=== PATIENT | female | born 1940 | race Caucasian/White ===

== ENCOUNTER 2016-06-15 18:35 | Observation (INO) | payer MEDICARE ==
[~2016-06-15] VITALS: Ht 175.3 cm; Wt 70.0 kg
[2016-06-15 18:55] VITALS: BP 115/85; PULSE 79; RESP 17; TEMP 98.8; O2SAT 97
[2016-06-15] MEDS ORDERED: SODIUM CHLOR 0.9% 1000 ML INJ 1,000 ML IV ONE ×2 (18:55→19:00)
[2016-06-15] MEDS ORDERED: SODIUM CHLORIDE 0.9% FLUSH 10 ML FLUSH IVF PRN (19:00)
[2016-06-15] MEDS ORDERED: ONDANSETRON HCL 4 MG/2 ML VIAL IVP ONE (19:00)
--- NOTE | 2016-06-15 19:06 | PD ---
HPI Chief Complaint: GI Complaint Time Seen by Provider: 18:55 Travel History International Travel<30 days: No Contact w/Intl Traveler<30days: No Traveled to known affect area: No History of Present Illness HPI Patient is a 75 year old female with history of hypertension who presents to the ER after a syncopal episode. Patient reports that she was not feeling well since last night, reports that she began having chills last night. Reports that this morning, she began to feel sick and felt nauseous. Reports that she was standing in her kitchen and felt nauseous and was vomiting, reports that she must of "passed out." Patient's found her on the ground, called 911. EMS reports that when he arrived on scene, patient was sitting on the ground, reports that she had vomited multiple times and had complained of a headache. Patient reports that she has a mild headache at this time, denies fever/chills. Denies chest pain or sob. Denies abdominal pain at this time. Patient with no other c/o. She does admit to taking a baby ASA daily. PFSH Past Medical History ?: Not Social History Tobacco Use: No Allergies-Medications (Allergen,Severity, Reaction): Coded Allergies: No Known Allergies (Unverified , 06/15/16) Reported Meds & Prescriptions Reported Meds & Active Scripts Active Reported Aspirin 81 Mg Tabdr 81 Mg PO DAILY Potassium 75 Mg Tab Amlodipine (Amlodipine Besylate) 5 Mg Tab 5 Mg PO DAILY Review of Systems General / Constitutional: Positive: Chills, No: Fever Eyes: No: Visual changes HENT: No: Headaches Cardiovascular: Positive: Syncope, No: Chest Pain or Discomfort Respiratory: Positive: Cough, No: Shortness of Breath Gastrointestinal: Positive: Nausea, Vomiting, No: Diarrhea, Abdominal Pain Genitourinary: No: Urgency, Frequency, Dysuria Musculoskeletal: No: Pain Skin: No Rash Neurologic: Positive: Weakness, Headache Psychiatric: No: Depression Endocrine: No: Polydipsia Hematologic/Lymphatic: No: Easy Bruising Physical Exam Narrative GENERAL: NAD, Nontoxic SKIN: Focused skin assessment warm/dry. HEAD: Atraumatic. Normocephalic. EYES: Pupils equal and round. No injection or drainage. ENT: No nasal bleeding or discharge. Mucous membranes pink and moist. NECK: Trachea midline. No JVD. no meningeal signs, negative Kernig's and Babinski's sign CARDIOVASCULAR: Irregular rate and rhythm. No murmur appreciated. RESPIRATORY: No accessory muscle use. Clear to auscultation. Breath sounds equal bilaterally. GASTROINTESTINAL: Abdomen soft, non-tender, nondistended. Hepatic and splenic margins not palpable. MUSCULOSKELETAL: No obvious deformities. No clubbing. No cyanosis. No edema. NEUROLOGICAL: Awake and alert. No obvious cranial nerve deficits. Motor grossly within normal limits. Normal speech. PSYCHIATRIC: Appropriate mood and affect; insight and judgment normal. Data Data Last Documented VS Vital Signs Date Time Temp Pulse Resp B/P Pulse Ox O2 Delivery O2 Flow Rate FiO2 06/15/16 19:40 17 06/15/16 19:39 97 Room Air 06/15/16 18:55 98.8 79 115/85 Orders Electrocardiogram (06/15/16 18:55) Complete Blood Count With Diff (06/15/16 18:55) Comprehensive Metabolic Panel (06/15/16 18:55) Magnesium (Mg) (06/15/16 18:55) B-Type Natriuretic Peptide (06/15/16 18:55) Ckmb (Isoenzyme) Profile (06/15/16 18:55) Troponin I (06/15/16 18:55) Act Partial Throm Time (Ptt) (06/15/16 18:55) Prothrombin Time / Inr (Pt) (06/15/16 18:55) Urinalysis - C+S If Indicated (06/15/16 18:55) Chest, Single Ap (06/15/16 18:55) Ct Brain W/O Iv Contrast(Rout) (06/15/16 18:55) Blood Glucose (06/15/16 18:55) Ecg Monitoring (06/15/16 18:55) Iv Access Insert/Monitor (06/15/16 18:55) Oximetry (06/15/16 18:55) Ondansetron Inj (Zofran Inj) (06/15/16 19:00) Sodium Chloride 0.9% Flush (Ns Flush) (06/15/16 19:00) Sodium Chlor 0.9% 1000 Ml Inj (Ns 1000 M (06/15/16 18:55) Influenzae A/B Antigen (06/15/16 18:55) Blood Culture (06/15/16 18:55) Sodium Chlor 0.9% 1000 Ml Inj (Ns 1000 M (06/15/16 19:00) Aspirin (Aspirin) (06/15/16 20:45) Admit Order (Ed Use Only) (06/15/16 20:39) Labs Laboratory Tests Test 06/15/16 19:31 White Blood Count 5.5 TH/MM3 Red Blood Count 4.06 MIL/MM3 Hemoglobin 12.5 GM/DL Hematocrit 34.6 % Mean Corpuscular Volume 85.1 FL Mean Corpuscular Hemoglobin 30.7 PG Mean Corpuscular Hemoglobin 36.0 % Concent Red Cell Distribution Width 12.9 % Platelet Count 175 TH/MM3 Mean Platelet Volume 7.8 FL Neutrophils (%) (Auto) 79.6 % Lymphocytes (%) (Auto) 9.7 % Monocytes (%) (Auto) 10.3 % Eosinophils (%) (Auto) 0.2 % Basophils (%) (Auto) 0.2 % Neutrophils # (Auto) 4.4 TH/MM3 Lymphocytes # (Auto) 0.5 TH/MM3 Monocytes # (Auto) 0.6 TH/MM3 Eosinophils # (Auto) 0.0 TH/MM3 Basophils # (Auto) 0.0 TH/MM3 CBC Comment AUTO DIFF Differential Total Cells 100 Counted Neutrophils % (Manual) 75 % Band Neutrophils % 13 % Lymphocytes % 10 % Monocytes % 2 % Neutrophils # (Manual) 4.8 TH/MM3 Differential Comment FINAL DIFF MANUAL Platelet Estimate NORMAL Platelet Morphology Comment NORMAL Ovalocytes 1+ Prothrombin Time 10.7 SEC Prothromb Time International 1.0 RATIO Ratio Activated Partial 24.5 SEC Thromboplast Time Sodium Level 135 MEQ/L Potassium Level 3.4 MEQ/L Chloride Level 100 MEQ/L Carbon Dioxide Level 25.8 MEQ/L Anion Gap 9 MEQ/L Blood Urea Nitrogen 11 MG/DL Creatinine 0.74 MG/DL Estimat Glomerular Filtration 77 ML/MIN Rate Random Glucose 134 MG/DL Calcium Level 8.6 MG/DL Magnesium Level 1.9 MG/DL Total Bilirubin 0.5 MG/DL Aspartate Amino Transf 15 U/L (AST/SGOT) Alanine Aminotransferase 18 U/L (ALT/SGPT) Alkaline Phosphatase 45 U/L Total Creatine Kinase 59 U/L Troponin I LESS THAN 0.02 NG/ML B-Type Natriuretic Peptide 434 PG/ML Total Protein 6.5 GM/DL Albumin 3.4 GM/DL MDM Medical Decision Making Medical Screen Exam Complete: Yes Emergency Medical Condition: Yes Interpretation(s) EKG at 1950: Sinus tach at 109bpm, qt/qtc: 354/418, no acute st or t wave changes Vital Signs Date Time Temp Pulse Resp B/P Pulse Ox O2 Delivery O2 Flow Rate FiO2 06/15/16 18:55 98.8 79 17 115/85 97 Differential Diagnosis dehydration, pneumonia, influenza, electrolyte abnormality, ACS, new onset afib , meningitis though unlikely Narrative Course Patient is a 75 year old female who presents to ER after syncopal episode at home today. Patient reports that she began to have chills last night, reports that she felt nauseous today and has been vomiting. Patient reports that she was in her kitchen today well vomiting, reports that she had a syncopal episode. Patient's found her on the floor of her kitchen. EMS arrived on scene, patient was sitting up and she was hypotensive with sbp in the 70's. BS 117, patient was given IVF and she did respond to them. Patient at this time complains of a minor headache, she does take a baby aspirin every day. CT of head ordered. Patient with no chest pain or shortness of breath. No abdominal pain. Labs as well as EKG, cardiac enzymes and xray of chest ordered to evaluate for syncopal episode. Patient has been pancultured, influenza ordered as patient is complaining chills as well as cough. Diagnosis Primary Impression: Syncope and collapse Admitting Information Admitting Physician Requests: Observation Scripts Metoprolol Tartrate 50 Mg Tab50 Mg PO BID #60 TAB Ref 0 Prov:Juan Ramon Perez 06/16/16 Azithromycin 250 Mg [id number] Mg PO DIRECTED #6 TAB Ref 0 Take 2 tabs (500 mg) on day 1 then 1 tab daily x 4 days. Prov:Juan Ramon Perez 06/16/16 Beth Whitten DO Jun 15, 2016 19:06
--- NOTE | 2016-06-15 19:24 | RADRPT ---
EXAM DATE/TIME: 06/15/2016 19:04 [facility] COMPARISON: No previous studies available for comparison. INDICATIONS : Fainted today and found on floor; cephalgia since yesterday. RADIATION DOSE: 56.35 CTDIvol (mGy) MEDICAL HISTORY : None SURGICAL HISTORY : None. ENCOUNTER: Initial ACUITY: 2 days PAIN SCALE: 4/10 LOCATION: cranial TECHNIQUE: Multiple contiguous axial images were obtained of the head. Using automated exposure control and adj ustment of the mA and/or kV according to patient size, radiation dose was kept as low as reasonably a chievable to obtain optimal diagnostic quality images. FINDINGS: CEREBRUM: The ventricles are normal for age. No evidence of midline shift, mass lesion, hemorrhage or acute in farction. No extra-axial fluid collections are seen. Mild periventricular and subcortical white yoana er small vessel ischemic changes are noted bilaterally. POSTERIOR FOSSA: The cerebellum and brainstem are intact. The 4th ventricle is midline. The cerebellopontine angle i s unremarkable. EXTRACRANIAL: The visualized portion of the orbits is intact. SKULL: The calvaria is intact. No evidence of skull fracture. CONCLUSION: 1. Mild periventricular and subcortical white matter small vessel ischemic changes bilaterally. 2. No acute infarct, acute hemorrhage, mass effect or extra axial fluid collections. Lencho Judge MD on June 15, 2016 at 19:20 Board Certified Radiologist. This report was verified electronically.
--- NOTE | 2016-06-15 19:25 | RADRPT ---
EXAM DATE/TIME: 06/15/2016 19:00 [facility] COMPARISON: No previous studies available for comparison. INDICATIONS : Fever, syncopal episode today MEDICAL HISTORY : None. SURGICAL HISTORY : None. ENCOUNTER: Initial ACUITY: 1 day PAIN SCORE: Non-responsive. LOCATION: Bilateral chest FINDINGS: The heart and mediastinal structures are normal. The pulmonary vascular pattern is normal. There is minimal streakiness within the left lung base consistent with possible atelectasis. The right lung is clear. Degenerative changes and scoliosis of the thoracic spine are noted. CONCLUSION: 1. Minimal streakiness within the left lung base consistent with possible atelectasis and/or scarring . 2. Degenerative changes and scoliosis of the thoracic spine. Lencho Judge MD on June 15, 2016 at 19:19 Board Certified Radiologist. This report was verified electronically.
[2016-06-15 19:39] VITALS: O2SAT 97
[2016-06-15] MEDS ORDERED: POTA75TA (19:44)
[2016-06-15] MEDS ORDERED: VALS1TAB70 PO (19:44)
[2016-06-15] MEDS ORDERED: AMLO5TAB2 PO (19:44)
[2016-06-15] MEDS ORDERED: METO100T7 PO (19:44)
[2016-06-15] MEDS ORDERED: ASPI1TAB69 PO (19:44)
[2016-06-15 19:57] LABS: AUTOMATED NEUTROPHIL # 4.4 TH/MM3 (1.8-7.7); BASOPHIL % 0.2 % (0.0-2.0); EOSINOPHIL % 0.2 % (0.0-4.0); HEMATOCRIT 34.6 % (35.0-46.0); LYMPH % 9.7 % (9.0-44.0); LYMPHOCYTE # 0.5 TH/MM3 (1.0-4.8); MEAN CELL VOLUME 85.1 FL (80.0-100.0); MEAN CORPUSCULAR HEMOGLOBIN 30.7 PG (27.0-34.0); MONO % 10.3 % (0.0-8.0); NEUT % 79.6 % (16.0-70.0); PLATELET COUNT 175 TH/MM3 (150-450); RED BLOOD COUNT 4.06 MIL/MM3 (4.00-5.30); RED CELL DISTRIBUTION WIDTH 12.9 % (11.6-17.2); WHITE BLOOD COUNT 5.5 TH/MM3 (4.0-11.0)
[2016-06-15 20:04] LABS: HEMO FLAGS AUTO DIFF
[2016-06-15 20:06] LABS: APTT (PATIENT) 24.5 SEC (24.3-30.1); PROTHROMBIN TIME - PATIENT 10.7 SEC (9.8-11.6)
[2016-06-15 20:09] LABS: ANION GAP 9 MEQ/L (5-15); AST (GOT) 15 U/L (15-37); BICARBONATE 25.8 MEQ/L (21.0-32.0); BLOOD UREA NITROGEN 11 MG/DL (7-18); CHLORIDE 100 MEQ/L (98-107); GLOMERULAR FILTRATION RATE 77 ML/MIN (>89); MAGNESIUM 1.9 MG/DL (1.5-2.5); POTASSIUM 3.4 MEQ/L (3.5-5.1); SODIUM (NA) 135 MEQ/L (136-145)
[2016-06-15 20:14] LABS: ALKALINE PHOSPHATASE 45 U/L (45-117); ALT (GPT) 18 U/L (10-53); TOTAL BILIRUBIN ADULT 0.5 MG/DL (0.2-1.0)
[2016-06-15 20:16] LABS: CREATINE KINASE 59 U/L (26-192)
[2016-06-15] MEDS ORDERED: PIPERACIL-TAZO 4.5 GM PREMIX 100 ML IV ONE (20:30)
[2016-06-15] MEDS ORDERED: AZITHROMYCIN INJ 500 MG in SODIUM CHLOR 0.9% 250 ML INJ 250 ML IV ONE (20:30)
[2016-06-15] MEDS ORDERED: ACETAMINOPHEN/HYDROcodone 325 MG/5 MG TAB PO PRN (20:45)
[2016-06-15] MEDS ORDERED: ACETAMINOPHEN 325 MG TAB PO PRN (20:45)
[2016-06-15] MEDS ORDERED: MORPHINE SULFATE 4 MG/ML INJ IV PRN (20:45)
[2016-06-15] MEDS ORDERED: SODIUM CHLORIDE 0.9% FLUSH 10 ML FLUSH IV FLUSH PRN (20:45)
[2016-06-15] MEDS ORDERED: BISACODYL 10 MG SUPP RECTAL PRN (20:45)
[2016-06-15] MEDS ORDERED: ASPIRIN 325 MG TAB PO ONE (20:45)
[2016-06-15] MEDS ORDERED: POTASSIUM CHLORIDE 20 MEQ CONTROLLED RELEASE TAB PO ONE (20:45)
[2016-06-15] MEDS ORDERED: ONDANSETRON HCL 4 MG/2 ML VIAL IVP PRN (20:45)
--- NOTE | 2016-06-15 20:47 | HHI.HP ---
[facility] No Primary Care Physician Admission Diagnosis Syncope Diagnoses: (1) Syncope Diagnosis: Principal (2) Hypotension Diagnosis: Principal (3) Nausea & vomiting Diagnosis: Principal (4) Hypokalemia Diagnosis: Principal Travel History International Travel<30 Days: No Contact w/Intl Traveler <30 Da: No Traveled to Known Affected Are: No History of Present Illness This is a 75-year-old female with a PMH of HTN was brought to the ER by EMS after syncopal episode. Per patient, she has been having ongoing nausea and vomiting since yesterday. Today, had persistent nausea and vomiting and " passed out", found unresponsive on kitchen floor by . Upon EMS arrival, patient noted to be hypotensive with BP 70s systolic, s/p IVF. Denies fever, chills or diarrhea. On arrival, BP 115/85, HR 79, O2 sat 97% on RA, Afebrile. WBC normal, however elevated neutrophil count and bandemia. K+ 3.4. GFR 77, no previous labs for comparison. CT Head no acute findings. CXR with minimal streakiness left lung base consistent with atelectasis. Review of Systems Except as stated in HPI: all other systems reviewed are Neg ROS: 14 point review of systems otherwise negative. Past Family Social History Past Medical History PMH: HTN Past Surgical History PAST SURGICAL HISTORY: Hysterectomy, Right Foot Surgery Allergies: Coded Allergies: No Known Allergies (Unverified , 06/15/16) Family History PAST FAMILY HISTORY: Reviewed. No h/o DM or CAD Social History PAST SOCIAL HISTORY: Negative for alcohol, tobacco or drugs. Physical Exam Vital Signs Vital Signs Date Time Temp Pulse Resp B/P Pulse Ox O2 Delivery O2 Flow Rate FiO2 06/15/16 19:40 17 06/15/16 19:39 97 Room Air 06/15/16 18:55 98.8 79 17 115/85 97 Physical Exam PE: GENERAL: Pleasant elderly female in no acute distress. HEENT: PERRLA, EOMI. No scleral icterus or conjunctival pallor. No lid lag or facial droop. Dry mucous membranes CARDIOVASCULAR: Regular rate and rhythm. No obvious murmurs to auscultation. No chest tenderness to palpation. RESPIRATORY: No obvious rhonchi or wheezing. Clear to auscultation. Breath sounds equal bilaterally. GASTROINTESTINAL: Abdomen soft, non-tender, nondistended. BS normal. MUSCULOSKELETAL: Extremities without clubbing, cyanosis, or edema. No obvious deformities. NEUROLOGICAL: Awake, alert and oriented x4. No focal neurologic deficits. Moving both upper and lower extremities spontaneously. Laboratory Laboratory Tests Test 06/15/16 19:31 White Blood Count 5.5 Red Blood Count 4.06 Hemoglobin 12.5 Hematocrit 34.6 Mean Corpuscular Volume 85.1 Mean Corpuscular Hemoglobin 30.7 Mean Corpuscular Hemoglobin 36.0 Concent Red Cell Distribution Width 12.9 Platelet Count 175 Mean Platelet Volume 7.8 Neutrophils (%) (Auto) 79.6 Lymphocytes (%) (Auto) 9.7 Monocytes (%) (Auto) 10.3 Eosinophils (%) (Auto) 0.2 Basophils (%) (Auto) 0.2 Neutrophils # (Auto) 4.4 Lymphocytes # (Auto) 0.5 Monocytes # (Auto) 0.6 Eosinophils # (Auto) 0.0 Basophils # (Auto) 0.0 CBC Comment AUTO DIFF Prothrombin Time 10.7 Prothromb Time International 1.0 Ratio Activated Partial 24.5 Thromboplast Time Sodium Level 135 Potassium Level 3.4 Chloride Level 100 Carbon Dioxide Level 25.8 Anion Gap 9 Blood Urea Nitrogen 11 Creatinine 0.74 Estimat Glomerular Filtration 77 Rate Random Glucose 134 Calcium Level 8.6 Magnesium Level 1.9 Total Bilirubin 0.5 Aspartate Amino Transf 15 (AST/SGOT) Alanine Aminotransferase 18 (ALT/SGPT) Alkaline Phosphatase 45 Total Creatine Kinase 59 Troponin I LESS THAN 0.02 Total Protein 6.5 Albumin 3.4 Date/Time Procedure Status Source Growth 06/15/16 19:34 Influenza Types A,B Antigen ([facility]) - Final Complete Nasal Washing NEGATIVE FOR FLU A AND B ANTIGEN.... 06/15/16 19:32 Aerobic Blood Culture Received Blood Peripheral Pending 06/15/16 19:32 Anaerobic Blood Culture Received Blood Peripheral Pending Result Diagram: 06/15/16193006/15/161930 Assessment and Plan Problem List: (1) Syncope ICD Code: R55 Status: Acute (2) Hypotension ICD Code: I95.9 Status: Acute (3) Nausea & vomiting ICD Code: R11.2 Status: Acute (4) Hypokalemia ICD Code: E87.6 Status: Acute Assessment and Plan A/P: 1. Syncope: Likely vasovagal in light of nausea/vomiting and dehydration. Initial trop negative, EKG w/ no acute findings. Admit for Observation, telemetry, check serial enzymes. Check Echo. IVF for hydration. 2. Hypotension: Secondary to dehydration from nausea/vomiting and decreased PO intake. Continue w/ IVF, monitor BP, hold BP meds until pressure stable. 3. Nausea/Vomiting: acute onset of nausea/vomiting, no diarrhea. WBC normal, afebrile, however elevated neutrophil count and bandemia. Will start on empiric treatment for Gastroenteritis w/ Cipro/Flagyl. Check CT Abd/Pelvis if symptoms persistent. Analgesics/antiemetics as needed. 4. Hypokalemia: K+ 3.4, will replace and recheck in am. 5. DVT Prophylaxis: SCD/Teds. 6. Social work for d/c planning as needed. 7. Case discussed w/ ER physician at length. Merly Alvarado MD Jun 15, 2016 20:47
[2016-06-15 20:54] LABS: BANDS 13 % (0-6); NEUTROPHIL # MANUAL DIFF 4.8 TH/MM3 (1.8-7.7); POLYS (SEG NEUTROPHILS) 75 % (16-70); WBC DIFF SAMPLE 100
[2016-06-15 20:55] LABS: OVALOCYTES 1+ (NORMAL); PLATELET ESTIMATE SMEAR NORMAL (NORMAL); PLATELET MORPHOLOGY NORMAL (NORMAL)
[2016-06-15 20:56] LABS: SCAN/DIFF FINAL DIFF MANUAL
[2016-06-15] MEDS: SODIUM CHLORIDE 0.9% FLUSH 10 ML FLUSH IV FLUSH SCH (21:00)
[2016-06-15 21:04] VITALS: BP 131/64; PULSE 66; RESP 16; O2SAT 97
[2016-06-15] MEDS: SODIUM CHLOR 0.9% 1000 ML INJ 1,000 ML IV SCH (21:05)
[2016-06-15] MEDS ORDERED: CIPROFLOXACIN 400 MG PREMIX 200 ML IV SCH (22:15)
[2016-06-15 22:54] VITALS: BP 125/68; PULSE 73; RESP 18; TEMP 98.1; O2SAT 95
[2016-06-16 00:53] VITALS: BP 124/60; PULSE 63; RESP 18; TEMP 98.1; O2SAT 96
[2016-06-16 01:10] VITALS: PULSE 60
[2016-06-16] MEDS: metroNIDAZOLE 500 MG INJ 100 ML IV SCH ×2 (01:10→08:40)
[2016-06-16 04:16] VITALS: BP 122/69; PULSE 85; RESP 18; TEMP 98.1; O2SAT 97
[2016-06-16 07:30] LABS: AUTOMATED NEUTROPHIL # 2.6 TH/MM3 (1.8-7.7); BASOPHIL % 0.1 % (0.0-2.0); EOSINOPHIL % 0.1 % (0.0-4.0); HEMO FLAGS DIFF FINAL; LYMPH % 17.7 % (9.0-44.0); LYMPHOCYTE # 0.7 TH/MM3 (1.0-4.8); MEAN CELL VOLUME 87.2 FL (80.0-100.0); MEAN CORPUSCULAR HEMOGLOBIN 29.3 PG (27.0-34.0); MEAN CORPUSCULAR HGB CONC 33.7 % (32.0-36.0); NEUT % 67.1 % (16.0-70.0); PLATELET COUNT 149 TH/MM3 (150-450); RED BLOOD COUNT 3.79 MIL/MM3 (4.00-5.30); WHITE BLOOD COUNT 3.9 TH/MM3 (4.0-11.0)
[2016-06-16 07:54] LABS: ALT (GPT) 16 U/L (10-53); ANION GAP 9 MEQ/L (5-15); AST (GOT) 14 U/L (15-37); BICARBONATE 23.4 MEQ/L (21.0-32.0); BLOOD UREA NITROGEN 7 MG/DL (7-18); CHLORIDE 108 MEQ/L (98-107); GLOMERULAR FILTRATION RATE 88 ML/MIN (>89); POTASSIUM 3.7 MEQ/L (3.5-5.1); SODIUM (NA) 140 MEQ/L (136-145)
[2016-06-16 07:57] LABS: ALKALINE PHOSPHATASE 39 U/L (45-117); TOTAL BILIRUBIN ADULT 0.3 MG/DL (0.2-1.0)
[2016-06-16 08:21] VITALS: BP_SYST 133; BP_SYST 134; BP_SYST 144; BP_DIAS 56; BP_DIAS 70; BP_DIAS 75; PULSE 99; RESP 18; TEMP 97.9; O2SAT 95
[2016-06-16] MEDS: SODIUM CHLOR 0.9% 1000 ML INJ 1,000 ML IV SCH (08:39)
[2016-06-16] MEDS: SODIUM CHLORIDE 0.9% FLUSH 10 ML FLUSH IV FLUSH SCH (08:40)
[2016-06-16] MEDS ORDERED: ASPIRIN EC 81 MG TABEC PO SCH (09:00)
[2016-06-16] MEDS ORDERED: LEVOFLOXACIN 750 MG TAB PO SCH (09:15)
[2016-06-16] MEDS ORDERED: amLODIPine BESYLATE 5 MG TAB PO SCH (09:30)
--- NOTE | 2016-06-16 09:38 | HHI.PR ---
Subjective Remarks Follow-up for syncope and URI. The patient states that 2 days ago she went to urgent care with cough and upper respiratory symptoms. She states they diagnosed her with an upper respiratory infection, which they thought was likely viral, so they gave her an antibiotic to take on Saturday if she did not improve. Overnight she feels like her cough is getting better and less productive. She states that all day yesterday she was having persistent nausea. She didn't eat much yesterday due to the nausea. Yesterday evening she began having episodes of vomiting, and subsequently passed out. She was reportedly hypotensive and tachycardic when the ambulance arrived. She reports that at the urgent care her systolic blood pressure was 110 which is a little low for her. She denies any recent medication changes. She isn't able to use the bedside commode and get out of bed today, denies any lightheadedness or dizziness. She reports that the medicine here helps with the nausea, she isn't able to tolerate diet here, no vomiting. No fever or chills. The patient says that her symptoms have resolved. She had questions about her x -ray. She said she was going go back to [place] shortly where she will follow up with her primary care doctor. Objective Vitals Vital Signs Date Time Temp Pulse Resp B/P Pulse Ox O2 Delivery O2 Flow Rate FiO2 06/16/16 08:21 97.9 99 18 133/70 95 144/75 134/56 06/16/16 04:16 98.1 85 18 122/69 97 06/16/16 01:10 60 06/16/16 00:53 98.1 63 18 124/60 96 06/15/16 22:54 98.1 73 18 125/68 95 Room Air 06/15/16 21:04 66 16 131/64 97 Room Air 06/15/16 19:40 17 06/15/16 19:39 97 Room Air 06/15/16 18:55 98.8 79 17 115/85 97 Result Diagram: 06/16/16 0555 06/16/16 0555 Imaging Last Impressions Head CT 06/15/16 8509 Signed Impressions: Service Date/Time: Wednesday, June 15, 2016 19:04 - CONCLUSION: 1. Mild periventricular and subcortical white matter small vessel ischemic changes bilaterally. 2. No acute infarct, acute hemorrhage, mass effect or extra axial fluid collections. Lencho Judge MD Chest X-Ray 06/15/16 8457 Signed Impressions: Service Date/Time: Wednesday, June 15, 2016 19:00 - CONCLUSION: 1. Minimal streakiness within the left lung base consistent with possible atelectasis and/or scarring. 2. Degenerative changes and scoliosis of the thoracic spine. Lencho Judge MD Objective Remarks GENERAL: Well-developed well-nourished. In no acute distress. SKIN: Warm and dry. No lesions noted. HEENT: Normocephalic. Pupils equal and round. Mucous membranes pink and moist. CARDIOVASCULAR: Regular rate and rhythm. No murmur appreciated. RESPIRATORY: No accessory muscle use. Clear to auscultation. Breath sounds equal bilaterally. GASTROINTESTINAL: Abdomen soft, non-tender, nondistended. Bowel sounds x4. MUSCULOSKELETAL: No obvious deformities. No clubbing or cyanosis. No edema. NEUROLOGICAL: Awake and alert. No focal neurological deficits. Moves upper and lower extremities spontaneously. Normal speech. PSYCHIATRIC: Appropriate mood and affect; insight and judgment normal. A/P Problem List: (1) Syncope ICD Code: R55 Status: Acute (2) Hypotension ICD Code: I95.9 Status: Acute (3) Nausea & vomiting ICD Code: R11.2 Status: Acute (4) Hypokalemia ICD Code: E87.6 Status: Resolved Assessment and Plan 75-year-old female with a PMH of HTN who presented after syncopal episode Syncope: Suspect vasovagal in light of infection, nausea/vomiting, and decreased intake. Troponin negative 2. EKG w/ sinus tachycardia rate 109, no ischemic changes. Monitor on telemetry. Check Echo. IVF for hydration. Likely secondary to viral infection and dehydration along with too many blood pressure medications. Medications adjusted. Hypotension: Secondary to dehydration from nausea/vomiting and decreased PO intake. Orthostatics negative. Continue w/ IVF. Resume BP meds as tolerated. Resume amlodipine. The patient will resume amlodipine and metoprolol upon discharge and will follow up with her PCP. Pneumonia: Complained of cough and upper respiratory symptoms for the past few days. Chest x-ray shows minimal streakiness within the left lung base afebrile. Continues to have cough. Start oral antibiotics. Incentive spirometry. Complete Z-Timmy. Nausea/Vomiting: Suspect secondary to pneumonia as above. No abdominal pain or diarrhea. Supportive care. Hypokalemia: K+ 3.4, replaced, now 3.7. Resolved. Magnesium within normal limits. DVT Prophylaxis: SCD/Teds. Discharge Planning Encouraged ambulation with assistance. Follow up echo results. Monitor BP. If patient remains stable and workup remains negative, possible discharge later today vs tomorrow a.m. Attending Statement The exam, history, and the medical decision-making described in the above note were completed with the assistance of the mid-level provider. I reviewed and agree with the findings presented. I attest that I had a [id number] encounter with the patient on the same day, and personally performed and documented my assessment and findings in the medical record. Problem Qualifiers (1) Syncope: Qualified Code: R55 - Vasovagal syncope (2) Nausea & vomiting: Juan Ramon Perez Jun 16, 2016 09:38 Papito Whiting DO Jun 16, 2016 16:56
[2016-06-16 11:45] VITALS: BP 134/62; PULSE 64; RESP 18; TEMP 97.9; O2SAT 95
--- NOTE | 2016-06-16 13:37 | RADRPT ---
EXAM DATE/TIME: 06/16/2016 13:19 [facility] COMPARISON: No previous studies available for comparison. INDICATIONS : Evaluate for pneumonia. MEDICAL HISTORY : None. SURGICAL HISTORY : None. ENCOUNTER: Subsequent ACUITY: 2 days PAIN SCORE: 0/10 LOCATION: chest FINDINGS: PA and lateral views of the chest demonstrate the lungs to be symmetrically aerated without evidence of mass, infiltrate or effusion. The cardiomediastinal contours are unremarkable. Minimal scoliosis is noted. CONCLUSION: No acute disease. Jaycob Monteiro MD FACR on June 16, 2016 at 13:32 Board Certified Radiologist. This report was verified electronically.
--- NOTE | 2016-06-16 14:06 | EC ---
Study Study Date:06/16/2016 STUDY CONCLUSIONS SUMMARY - Left ventricle: The cavity size was normal. Wall thickness was normal. Systolic function was normal. The estimated ejection fraction was in the range of 60% to 65%. Wall motion was normal; there were no regional wall motion abnormalities. Left ventricular diastolic function parameters were normal. - Pulmonary arteries: PA peak pressure: 43mm Hg (S). If LV function is below 40, please consider prescribing an ACEI or ARB or document rationale for non-use. PROCEDURE DATA STUDY STATUS: Elective. Procedure: Transthoracic echocardiography. Image quality was good. Scanning was performed from the parasternal, apical, and subcostal acoustic windows. Study completion: The patient tolerated the procedure well. Transthoracic echocardiography. M-mode, complete 2D, complete spectral Doppler, and color Doppler. Patient status: Inpatient. CARDIAC ANATOMY LEFT VENTRICLE: The cavity size was normal. Wall thickness was normal. Systolic function was normal. The estimated ejection fraction was in the range of 60% to 65%. Wall motion was normal; there were no regional wall motion abnormalities. The transmitral flow pattern was normal. The deceleration time of the early transmitral flow velocity was normal. The pulmonary vein flow pattern was normal. The tissue Doppler parameters were normal. Left ventricular diastolic function parameters were normal. AORTIC VALVE: Trileaflet; normal thickness leaflets. Doppler: Transvalvular velocity was within the normal range. There was no stenosis. No regurgitation. AORTA: Aortic root: The aortic root was normal in size. MITRAL VALVE: Structurally normal valve. Doppler: Transvalvular velocity was within the normal range. There was no evidence for stenosis. Trace to mild regurgitation. Peak gradient: 5mm Hg (D). LEFT ATRIUM: The atrium was normal in size. RIGHT VENTRICLE: The cavity size was normal. Wall thickness was normal. Systolic function was normal. PULMONIC VALVE: Doppler: Transvalvular velocity was within the normal range. There was no evidence for stenosis. No regurgitation. TRICUSPID VALVE: Structurally normal valve. Doppler: Transvalvular velocity was within the normal range. Trace to mild regurgitation. PULMONARY ARTERY: The main pulmonary artery was normal-sized. Systolic pressure was within the normal range. RIGHT ATRIUM: The atrium was normal in size. PERICARDIUM: There was no pericardial effusion. SYSTEMIC VEINS: Inferior vena cava: The vessel was normal in size. BASIC MEASUREMENTS ADULT Normal Left ventricle LV internal dimension, ED, chordal level, 46.7 mm 43-52 PLAX LV internal dimension, ES, chordal level, 29.2 mm 23-38 PLAX Fractional shortening, chordal level, PLAX 37 % >29 LV posterior wall thickness, ED 8.3 mm IVS/LVPW ratio, ED *1.67 <1.3 Ventricular septum Septal thickness, ED 13.9 mm Aortic valve Leaflet separation 20 mm 15-26 Right ventricle RV internal dimension, ED, PLAX 31.5 mm 19-38 BASIC MEASUREMENTS ADULT Normal Aortic valve Leaflet separation 20 mm 15-26 Aorta Root diameter, ED *38 mm 20-37 Left atrium Anterior-posterior dimension, ES 40 mm 19-40 LA/aortic root ratio 1.05 DOPPLER MEASUREMENTS ADULT Normal Main pulmonary artery Pressure, S *43 mm Hg =30 Mitral valve Peak E-wave velocity 116 cm/s Peak A-wave velocity 56.8 cm/s Peak gradient, D 5 mm Hg Peak E/A ratio 2 Tricuspid valve Regurgitant peak velocity 286 cm/s Peak RV-RA gradient, S 33 mm Hg Maximal regurgitant velocity 286 cm/s Systemic veins Estimated CVP 10 mm Hg Right ventricle RV pressure, S *43 mm Hg <30 LEGEND: Mean values are shown as u=mean value. Asterisk (*) min values outside specified normal range. Prepared and signed by Kevin Callaway [id number]
[2016-06-16 15:19] VITALS: BP 129/64; PULSE 80; RESP 18; TEMP 97.9; O2SAT 95
[2016-06-16] MEDS ORDERED: AZIT250T3 PO (15:19)
[2016-06-16] MEDS ORDERED: METO50TA PO (15:39)
[2016-06-17] MEDS ORDERED: AZITHROMYCIN 250 MG TAB PO SCH (09:00)
--- NOTE | 2016-06-17 21:25 | EKG ---
Date Performed: 06/15/2016 Time Performed: 19:50:07 PTAGE: 75 years EKG: SINUS TACHYCARDIA WITH FIRST DEGREE AV BLOCK BORDERLINE LEFT AXIS DEVIATION NONSPECIFIC ST & T-WAVE ABNORMALITY ABNORMAL ECG NO PREVIOUS TRACING DOCTOR: Kevin Callaway Interpretating Date/Time 06/17/2016 21:22:37
== END 2016-06-16 17:02 | disposition home or self-care (01) ==
LOC: NEPA 18:35 → NEDA 20:41 → NEPGCP 23:43
PROVIDERS: ADMIT Hospitalist; ATTEND Hospitalist
DX: R55 Syncope and collapse (principal); R11.2 Nausea with vomiting, unspecified; I95.9 Hypotension, unspecified; E87.6 Hypokalemia
CPT/HCPCS: 70450; 71010; 71020; 80053; 82550; 83735; 83880; 84484; 85007; 85025; 85027; 85610; 85730; 87040; 87804; 93005; 93306; 96361; 96374; 99285; G0378; J0744; J2405; J7030

== ENCOUNTER 2017-05-25 16:44 | Observation (INO) | payer MEDICARE ==
[~2017-05-25] VITALS: Ht 165.1 cm; Wt 65.0 kg
[~2017-05-25 16:44] MED LIST: AMLO5TAB2 PO; ASPI1TAB69 PO; AZIT250T3 PO; METO50TA PO; POTA75TA
[2017-05-25 16:55] VITALS: BP 135/90; PULSE 105; RESP 16; TEMP 98.9; O2SAT 98
[2017-05-25 20:00] VITALS: BP 135/76; PULSE 90; RESP 20; TEMP 98; O2SAT 98
[2017-05-25 20:21] VITALS: BP 126/83; PULSE 102; RESP 18; O2SAT 99
[2017-05-25] MEDS ORDERED: LOSA100T PO (20:25)
[2017-05-25] MEDS ORDERED: METO50TA PO (20:25)
[2017-05-25] MEDS ORDERED: POTA-163 PO (20:25)
[2017-05-25] MEDS ORDERED: ONDANSETRON HCL 4 MG/2 ML VIAL IV PUSH ONE (20:45)
[2017-05-25] MEDS ORDERED: SODIUM CHLOR 0.9% 1000 ML INJ 1,000 ML IV ONE (20:45)
[2017-05-25 20:47] VITALS: RESP 16; O2SAT 99
--- NOTE | 2017-05-25 20:49 | PD ---
HPI Chief Complaint: Syncope/Near-Syncope Time Seen by Provider: 20:35 Travel History International Travel<30 days: No Contact w/Intl Traveler<30days: No Traveled to known affect area: No History of Present Illness HPI 76-year-old female complains of nausea and syncope. Patient states that she started having nausea since this morning. Patient states that she ate breakfast however has not eaten anything since then. Patient states that the nausea gets worse in the afternoon. Patient states that she had a syncopal episode around 4:00 this afternoon. Patient states that she did not injure herself during the syncopal episode. EMS was called subsequently. Patient was transported to the ED. Patient states that she was given medication by EMS which helped with the nausea. Patient denies any nausea now. Patient denies any headache. Patient denies any visual change. Patient denies any chest pain or shortness of breath. Patient denies abdominal pain. Patient denies any focal weakness or numbness of the extremity. Patient had similar episode of syncope with nausea last year. Patient was admitted. Workup was negative. Patient was discharged home. Patient stated no new medication recently. PFSH Past Medical History Blood Disorders: No Cancer: Yes (SKIN CA) Cardiovascular Problems: Yes Chemotherapy: No Diabetes: No Diminished Hearing: Yes Endocrine: No Genitourinary: No Hypertension: Yes Musculoskeletal: No Neurologic: No Psychiatric: No Reproductive: Yes (PROLAPSED UTERUS) Respiratory: No Radiation Therapy: No Tetanus Vaccination: Unknown Influenza Vaccination: Yes ?: Not Past Surgical History Hysterectomy: Yes Other Surgery: Yes (HYSTERECTOMY 2012) Social History Alcohol Use: No Tobacco Use: No Substance Use: No Allergies-Medications (Allergen,Severity, Reaction): Coded Allergies: No Known Allergies (Unverified Adverse Reaction, Unknown, 05/25/17) Reported Meds & Prescriptions Reported Meds & Active Scripts Active Reported Potassium Chloride ER (Potassium Chloride) 20 Meq Tab 20 Meq PO DAILY Metoprolol Tartrate 50 Mg Tab 50 Mg PO BID Losartan (Losartan Potassium) 100 Mg Tab 100 Mg PO DAILY Review of Systems General / Constitutional: No: Fever Eyes: No: Visual changes HENT: No: Headaches Cardiovascular: No: Chest Pain or Discomfort Respiratory: No: Shortness of Breath Gastrointestinal: Positive: Nausea, No: Abdominal Pain Genitourinary: No: Dysuria Musculoskeletal: No: Pain Skin: No Rash Neurologic: Positive: Syncope, No: Weakness Psychiatric: No: Depression Endocrine: No: Polydipsia Hematologic/Lymphatic: No: Easy Bruising Physical Exam Narrative GENERAL: Well-nourished, well-developed patient. SKIN: Focused skin assessment warm/dry. HEAD: Normocephalic. EYES: No scleral icterus. No injection or drainage. Pupils 2 mm equal reactive. NECK: Supple, trachea midline. No JVD or lymphadenopathy. No neck tenderness. CARDIOVASCULAR: Regular rate and rhythm without murmurs, gallops, or rubs. RESPIRATORY: Breath sounds equal bilaterally. No accessory muscle use. GASTROINTESTINAL: Abdomen soft, non-tender, nondistended. MUSCULOSKELETAL: No cyanosis, or edema. BACK: Nontender without obvious deformity. No CVA tenderness. Neurologic exam: Patient is awake alert oriented 3. No obvious focal neurological deficit. Data Data Last Documented VS Vital Signs Date Time Temp Pulse Resp B/P (MAP) Pulse Ox O2 Delivery O2 Flow Rate FiO2 05/25/17 20:47 16 99 Room Air 05/25/17 20:21 102 05/25/17 16:55 98.9 Orders Orders Electrocardiogram (05/25/17 20:42) Complete Blood Count With Diff (05/25/17 20:42) Comprehensive Metabolic Panel (05/25/17 20:42) Prothrombin Time / Inr (Pt) (05/25/17 20:42) Act Partial Throm Time (Ptt) (05/25/17 20:42) Urinalysis - C+S If Indicated (05/25/17 20:42) Thyroid Stimulating Hormone (05/25/17 20:42) Iv Access Insert/Monitor (05/25/17 20:42) Ecg Monitoring (05/25/17 20:42) Oximetry (05/25/17 20:42) Sodium Chlor 0.9% 1000 Ml Inj (Ns 1000 M (05/25/17 20:45) Ondansetron Inj (Zofran Inj) (05/25/17 20:45) Electrocardiogram (05/25/17 ) Ct Brain W/O Iv Contrast(Rout) (05/25/17 21:44) Labs Laboratory Tests Test 05/25/17 20:40 05/25/17 20:50 White Blood Count 7.1 TH/MM3 Red Blood Count 4.34 MIL/MM3 Hemoglobin 13.1 GM/DL Hematocrit 37.8 % Mean Corpuscular Volume 87.3 FL Mean Corpuscular Hemoglobin 30.1 PG Mean Corpuscular Hemoglobin Concent 34.5 % Red Cell Distribution Width 13.1 % Platelet Count 220 TH/MM3 Mean Platelet Volume 7.5 FL Neutrophils (%) (Auto) 86.6 % Lymphocytes (%) (Auto) 8.9 % Monocytes (%) (Auto) 3.6 % Eosinophils (%) (Auto) 0.7 % Basophils (%) (Auto) 0.2 % Neutrophils # (Auto) 6.1 TH/MM3 Lymphocytes # (Auto) 0.6 TH/MM3 Monocytes # (Auto) 0.3 TH/MM3 Eosinophils # (Auto) 0.1 TH/MM3 Basophils # (Auto) 0.0 TH/MM3 CBC Comment DIFF FINAL Differential Comment Prothrombin Time 10.2 SEC Prothromb Time International Ratio 1.0 RATIO Activated Partial Thromboplast Time 25.0 SEC Blood Urea Nitrogen 14 MG/DL Creatinine 0.63 MG/DL Random Glucose 104 MG/DL Total Protein 6.7 GM/DL Albumin 3.5 GM/DL Calcium Level 8.8 MG/DL Alkaline Phosphatase 53 U/L Aspartate Amino Transf (AST/SGOT) 16 U/L Alanine Aminotransferase (ALT/SGPT) 26 U/L Total Bilirubin 0.8 MG/DL Sodium Level 138 MEQ/L Potassium Level 3.5 MEQ/L Chloride Level 105 MEQ/L Carbon Dioxide Level 23.9 MEQ/L Anion Gap 9 MEQ/L Estimat Glomerular Filtration Rate 92 ML/MIN Thyroid Stimulating Hormone 3rd Gen 2.000 uIU/ML Urine Color LIGHT-YELLOW Urine Turbidity CLEAR Urine pH 7.0 Urine Specific Only 1.008 Urine Protein NEG mg/dL Urine Glucose (UA) NEG mg/dL Urine Ketones NEG mg/dL Urine Occult Blood NEG Urine Nitrite NEG Urine Bilirubin NEG Urine Urobilinogen LESS THAN 2.0 MG/DL Urine Leukocyte Esterase SMALL Urine RBC 1 /hpf Urine WBC 4 /hpf Microscopic Urinalysis Comment CULT NOT INDICATED MDM Medical Decision Making Medical Screen Exam Complete: Yes Emergency Medical Condition: Yes Interpretation(s) 21:36 PM. EKG show atrial fibrillation with rates 100. CBC within normal limits. CMP within normal limits. UA is negative. 23:[address] scan of the brain negative acute pathology. Differential Diagnosis Differential diagnosis including vasovagal reaction, dehydration, electrolyte imbalance, arrhythmia, TIA, CVA. Narrative Course 76-year-old female with nausea and syncope. Patient has not eaten all day today except breakfast. Patient had similar episode last year and was admitted and workup was negative. Normal saline solution 1 L IV bolus. Zofran 4 mg IV. EKG show atrial fibrillation which is new compared to last year's EKG. Diagnosis Primary Impression: Syncope Qualified Codes: R55 - Syncope and collapse Additional Impression: Atrial fibrillation Qualified Codes: I48.0 - Paroxysmal atrial fibrillation Admitting Information Admitting Physician Requests: Observation Zan Noyola MD May 25, 2017 20:49
[2017-05-25 21:00] LABS: AUTOMATED NEUTROPHIL # 6.1 TH/MM3 (1.8-7.7); BASOPHIL % 0.2 % (0.0-2.0); EOSINOPHIL # 0.1 TH/MM3 (0-0.4); EOSINOPHIL % 0.7 % (0.0-4.0); HEMATOCRIT 37.8 % (35.0-46.0); HEMOGLOBIN 13.1 GM/DL (11.6-15.3); LYMPH % 8.9 % (9.0-44.0); LYMPHOCYTE # 0.6 TH/MM3 (1.0-4.8); MEAN CELL VOLUME 87.3 FL (80.0-100.0); MEAN CORPUSCULAR HEMOGLOBIN 30.1 PG (27.0-34.0); MEAN CORPUSCULAR HGB CONC 34.5 % (32.0-36.0); MEAN PLATELET VOLUME 7.5 FL (7.0-11.0); MONO % 3.6 % (0.0-8.0); MONOCYTE # 0.3 TH/MM3 (0-0.9); NEUT % 86.6 % (16.0-70.0); PLATELET COUNT 220 TH/MM3 (150-450); RED BLOOD COUNT 4.34 MIL/MM3 (4.00-5.30); RED CELL DISTRIBUTION WIDTH 13.1 % (11.6-17.2); WHITE BLOOD COUNT 7.1 TH/MM3 (4.0-11.0)
[2017-05-25 21:04] LABS: BILIRUBIN, URINE NEG (NEG); BLOOD, URINE NEG (NEG); GLUCOSE,URINE NEG (NEG); KETONE, URINE NEG (NEG); NITRITE,URINE NEG (NEG); URINE COLOR LIGHT-YELLOW (YELLW/STRAW); URINE LEUKOCYTE ESTERASE SMALL (NEG)
[2017-05-25 21:12] LABS: PROTHROMBIN TIME - PATIENT 10.2 SEC (9.8-11.6)
[2017-05-25 21:18] LABS: ALBUMIN 3.5 GM/DL (3.4-5.0); ALT (GPT) 26 U/L (10-53); AST (GOT) 16 U/L (15-37); BICARBONATE 23.9 MEQ/L (21.0-32.0); BLOOD UREA NITROGEN 14 MG/DL (7-18); CALCIUM 8.8 MG/DL (8.5-10.1); CHLORIDE 105 MEQ/L (98-107); CREATININE 0.63 MG/DL (0.50-1.00); GLOMERULAR FILTRATION RATE 92 ML/MIN (>89); GLUCOSE,RANDOM 104 MG/DL (74-106); SODIUM (NA) 138 MEQ/L (136-145)
[2017-05-25 21:28] LABS: ALKALINE PHOSPHATASE 53 U/L (45-117); TOTAL BILIRUBIN ADULT 0.8 MG/DL (0.2-1.0); TOTAL PROTEIN 6.7 GM/DL (6.4-8.2)
--- NOTE | 2017-05-25 22:08 | EKG ---
Date Performed: 05/25/2017 Time Performed: 20:20:20 PTAGE: 76 years EKG: ATRIAL FIBRILLATION WITH RAPID VENTRICULAR RESPONSE MARKED LEFT AXIS DEVIATION SEPTAL MYOCA RDIAL INFARCTION ABNORMAL ECG Compared to prior electrocardiogram, The rhythm on prior EKG is unclear because of artifact and it appears more regular. DOCTOR: Kael Chin Interpretating Date/Time 05/25/2017 22:07:47
[2017-05-25 23:00] VITALS: BP 118/84; PULSE 89; RESP 17; O2SAT 97
--- NOTE | 2017-05-25 23:05 | RADRPT ---
EXAM DATE/TIME: 05/25/2017 22:43 [facility] COMPARISON: No previous studies available for comparison. INDICATIONS : Altered mental status. RADIATION DOSE: 35.80 CTDIvol (mGy) MEDICAL HISTORY : Cardiovascular disease. Hypertension. SURGICAL HISTORY : Hysterectomy. ENCOUNTER: Initial ACUITY: 1 day PAIN SCALE: Non-responsive LOCATION: cranial TECHNIQUE: Multiple contiguous axial images were obtained of the head. Using automated exposure control and adj ustment of the mA and/or kV according to patient size, radiation dose was kept as low as reasonably a chievable to obtain optimal diagnostic quality images. DICOM format image data is available electro nically for review and comparison. FINDINGS: CEREBRUM: The ventricles are stable. No evidence of midline shift, mass lesion, hemorrhage or acute infarction . No extra-axial fluid collections are seen. POSTERIOR FOSSA: The cerebellum and brainstem are intact. The 4th ventricle is midline. The cerebellopontine angle i s unremarkable. EXTRACRANIAL: The visualized portion of the orbits is intact. SKULL: The calvaria is intact. No evidence of skull fracture. CONCLUSION: No acute intracranial abnormality. Steven Moran MD on May 25, 2017 at 23:03 Board Certified Radiologist. This report was verified electronically.
--- NOTE | 2017-05-25 23:22 | HHI.HP ---
[facility] Service [facility] Primary Care Physician No Primary Care Physician Admission Diagnosis Syncope. New onset atrial fibrillation. Diagnoses: (1) Syncope Diagnosis: Principal (2) A-fib Diagnosis: Principal Travel History International Travel<30 Days: No Contact w/Intl Traveler <30 Da: No Traveled to Known Affected Are: No History of Present Illness This is a 76-year-old female with a PMH of HTN and Skin CA who is brought in ER by EMS after syncopal event. Patient states she had upset stomach this morning with nausea, however was able to eat breakfast. States when she returned home she "didn't feel well" and had gotten up to go to the bathroom when she had sudden syncopal event. No reported seizure activity or incontinence. Similar episode 06/15/16 for which I admitted her, s/p negative cardiac work up at that time and Echo w/ EF 55-60%. On arrival, pt noted to be in A-fib w/ HR 102, no h /o of similar on last admission. Does not follow w/ [employer]. Denies chest pain or SOB. BP 135/90, HR 05, O2 sat 98% on RA Afebrile. CBC essentially unremarkable. Chemistry unremarkable. INR 1.0. UA small LE, minimal bacteria. CT Head w/ no acute findings. Review of Systems Except as stated in HPI: all other systems reviewed are Neg ROS: 14 point review of systems otherwise negative. Past Family Social History Past Medical History PMH: HTN and Skin CA Past Surgical History PAST SURGICAL HISTORY: Hysterectomy Allergies: Coded Allergies: No Known Allergies (Unverified Allergy, Unknown, 05/25/17) Family History PAST FAMILY HISTORY: Reviewed. No h/o DM or CAD Social History PAST SOCIAL HISTORY: Negative for alcohol, tobacco or drugs. Physical Exam Vital Signs Vital Signs Date Time Temp Pulse Resp B/P (MAP) Pulse Ox O2 Delivery O2 Flow Rate FiO2 05/25/17 20:47 16 99 Room Air 05/25/17 20:21 102 Room Air 05/25/17 20:21 102 18 126/83 (97) 99 Room Air 05/25/17 16:55 98.9 105 16 135/90 (105) 98 Physical Exam PE: GENERAL: Very pleasant elderly white female in no acute distress. HEENT: PERRLA, EOMI. No scleral icterus or conjunctival pallor. No lid lag or facial droop. CARDIOVASCULAR: Irregularly irregular, in A. fib. No obvious murmurs to auscultation. No chest tenderness to palpation. RESPIRATORY: No obvious rhonchi or wheezing. Clear to auscultation. Breath sounds equal bilaterally. GASTROINTESTINAL: Abdomen soft, non-tender, nondistended. BS normal. MUSCULOSKELETAL: Extremities without clubbing, cyanosis, or edema. No obvious deformities. NEUROLOGICAL: Awake, alert and oriented x4. No focal neurologic deficits. Moving both upper and lower extremities spontaneously. Laboratory Laboratory Tests Test 05/25/17 20:40 05/25/17 20:50 White Blood Count 7.1 Red Blood Count 4.34 Hemoglobin 13.1 Hematocrit 37.8 Mean Corpuscular Volume 87.3 Mean Corpuscular Hemoglobin 30.1 Mean Corpuscular Hemoglobin Concent 34.5 Red Cell Distribution Width 13.1 Platelet Count 220 Mean Platelet Volume 7.5 Neutrophils (%) (Auto) 86.6 Lymphocytes (%) (Auto) 8.9 Monocytes (%) (Auto) 3.6 Eosinophils (%) (Auto) 0.7 Basophils (%) (Auto) 0.2 Neutrophils # (Auto) 6.1 Lymphocytes # (Auto) 0.6 Monocytes # (Auto) 0.3 Eosinophils # (Auto) 0.1 Basophils # (Auto) 0.0 CBC Comment DIFF FINAL Differential Comment Prothrombin Time 10.2 Prothromb Time International Ratio 1.0 Activated Partial Thromboplast Time 25.0 Blood Urea Nitrogen 14 Creatinine 0.63 Random Glucose 104 Total Protein 6.7 Albumin 3.5 Calcium Level 8.8 Alkaline Phosphatase 53 Aspartate Amino Transf (AST/SGOT) 16 Alanine Aminotransferase (ALT/SGPT) 26 Total Bilirubin 0.8 Sodium Level 138 Potassium Level 3.5 Chloride Level 105 Carbon Dioxide Level 23.9 Anion Gap 9 Estimat Glomerular Filtration Rate 92 Thyroid Stimulating Hormone 3rd Gen 2.000 Urine Color LIGHT-YELLOW Urine Turbidity CLEAR Urine pH 7.0 Urine Specific [place] 1.008 Urine Protein NEG Urine Glucose (UA) NEG Urine Ketones NEG Urine Occult Blood NEG Urine Nitrite NEG Urine Bilirubin NEG Urine Urobilinogen LESS THAN 2.0 Urine Leukocyte Esterase SMALL Urine RBC 1 Urine WBC 4 Microscopic Urinalysis Comment CULT NOT INDICATED Result Diagram: 05/25/17203905/25/172039 Caprini VTE Risk Assessment Caprini VTE Risk Assessment: Mod/High Risk (score >= 2) Caprini Risk Assessment Model Point Value = 1 Point Value = 2 Point Value = 3 Point Value = 5 Age 41-60 Minor surgery BMI > 25 kg/m2 Swollen legs Varicose veins or History of unexplained or recurrent spontaneous Oral contraceptives or hormone replacement Sepsis (< 1 month) Serious lung disease, including pneumonia (< 1 month) Abnormal pulmonary function Acute myocardial infarction Congestive heart failure (< 1 month) History of inflammatory bowel disease Medical patient at bed rest Age 61-74 Arthroscopic surgery Major open surgery (> 45 min) Laparoscopic surgery (> 45 min) Malignancy Confined to bed (> 72 hours) Immobilizing plaster cast Central venous access Age >= 75 History of VTE Family history of VTE Factor V Leiden Prothrombin [id number] Lupus anticoagulant Anticardiolipin antibodies Elevated serum homocysteine Heparin-induced thrombocytopenia Other congenital or acquired thrombophilia Stroke (< 1 month) Elective arthroplasty Hip, pelvis, or leg fracture Acute spinal cord injury (< 1 month) Prophylaxis Regimen Total Risk Factor Score Risk Level Prophylaxis Regimen 0-1 Low Early ambulation 2 Moderate Order ONE of the following: *Sequential Compression Device (SCD) *Heparin 5000 units SQ BID 3-4 Higher Order ONE of the following medications: *Heparin 5000 units SQ TID *Enoxaparin/Lovenox 40 mg SQ daily (WT < 150 kg, CrCl > 30 mL/min) *Enoxaparin/Lovenox 30 mg SQ daily (WT < 150 kg, CrCl > 10-29 mL/min) *Enoxaparin/Lovenox 30 mg SQ BID (WT < 150 kg, CrCl > 30 mL/min) AND/OR *Sequential Compression Device (SCD) 5 or more Highest Order ONE of the following medications: *Heparin 5000 units SQ TID (Preferred with Epidurals) *Enoxaparin/Lovenox 40 mg SQ daily (WT < 150 kg, CrCl > 30 mL/min) *Enoxaparin/Lovenox 30 mg SQ daily (WT < 150 kg, CrCl > 10-29 mL/min) *Enoxaparin/Lovenox 30 mg SQ BID (WT < 150 kg, CrCl > 30 mL/min) AND *Sequential Compression Device (SCD) Assessment and Plan Problem List: (1) Syncope ICD Code: R55 - Syncope and collapse Status: Acute (2) A-fib ICD Code: I48.91 - Unspecified atrial fibrillation Assessment and Plan A/P: 1. Syncope: c/o nausea w/ subsequent syncope, possibly triggered by dysrhythmia, similar episode 06/15/16 however no A-fib at that time. Admit for Observation, telemetry. Check cardiac enzymes to eval for underlying ischemia, Check CXR. Echo 06/16/16 w/ [id number]%, will repeat Echo to eval for valvular abnormality. Consult Cardiology for further eval/recommendations. Start ASA, resume home Metoprolol. 2. A-fib: New Onset. HR 105 on arrival, monitor on telemetry, resume home Metoprolol and ASA. Cardizem prn for HR >130. 3. DVT Prophylaxis: SCD/Teds. 4. Social work for d/c planning as needed. 5. Case discussed w/ ER physician at length, labs/records/imaging reviewed by me. Problem Qualifiers (1) Syncope: Qualified Codes: R55 - Syncope and collapse Merly Alvarado MD May 25, 2017 23:22
[2017-05-25] MEDS ORDERED: ACETAMINOPHEN/HYDROcodone 325 MG/5 MG TAB PO PRN (23:30)
[2017-05-25] MEDS ORDERED: SENNOSIDES 8.6 MG TAB PO PRN (23:30)
[2017-05-25] MEDS ORDERED: MORPHINE SULFATE 2 MG/ML INJ IV PUSH PRN (23:30)
[2017-05-25] MEDS ORDERED: BISACODYL 10 MG SUPP RECTAL PRN (23:30)
[2017-05-25] MEDS ORDERED: LACTULOSE SYRUP 20 GM/30 ML CUP PO PRN (23:30)
[2017-05-25] MEDS ORDERED: ACETAMINOPHEN 325 MG TAB PO PRN (23:30)
[2017-05-25] MEDS ORDERED: ONDANSETRON HCL 4 MG/2 ML VIAL IVP PRN (23:30)
[2017-05-25] MEDS ORDERED: SODIUM CHLORIDE 0.9% FLUSH 10 ML FLUSH IV FLUSH PRN (23:30)
[2017-05-25] MEDS ORDERED: MAGNESIUM HYDROXIDE SUSP 30 ML CUP PO PRN (23:30)
[2017-05-26] VITALS (9 sets, daily range): BP systolic 113–135; BP diastolic 70–94; PULSE 72–102; RESP 14–20; TEMP 98–98.2; O2SAT 98–100
--- NOTE | 2017-05-26 01:03 | RADRPT ---
EXAM DATE/TIME: 05/26/2017 00:36 [facility] COMPARISON: CHEST PA & LAT, June 16, 2016, 13:19. INDICATIONS : Syncope, chest pain. MEDICAL HISTORY : None. SURGICAL HISTORY : None. ENCOUNTER: Initial ACUITY: 1 day PAIN SCORE: 0/10 LOCATION: Bilateral chest FINDINGS: There is trace atelectasis of the left lung base. No large effusion demonstrated. No pneumothorax. Heart size stable, upper limits of normal. Degenerative changes and mild scoliosis again seen in the spine. CONCLUSION: Mild left base atelectasis. Steven Moran MD on May 26, 2017 at 1:01 Board Certified Radiologist. This report was verified electronically.
[2017-05-26] MEDS: SODIUM CHLOR 0.9% 1000 ML INJ 1,000 ML IV SCH ×3 (04:08→19:18)
[2017-05-26 06:47] LABS: AUTOMATED NEUTROPHIL # 3.8 TH/MM3 (1.8-7.7); BASOPHIL % 0.3 % (0.0-2.0); EOSINOPHIL # 0.1 TH/MM3 (0-0.4); EOSINOPHIL % 1.2 % (0.0-4.0); HEMATOCRIT 35.8 % (35.0-46.0); HEMOGLOBIN 12.7 GM/DL (11.6-15.3); LYMPH % 19.4 % (9.0-44.0); MEAN CELL VOLUME 87.2 FL (80.0-100.0); MEAN CORPUSCULAR HEMOGLOBIN 30.8 PG (27.0-34.0); MEAN CORPUSCULAR HGB CONC 35.3 % (32.0-36.0); MEAN PLATELET VOLUME 7.5 FL (7.0-11.0); MONO % 6.6 % (0.0-8.0); MONOCYTE # 0.3 TH/MM3 (0-0.9); NEUT % 72.5 % (16.0-70.0); PLATELET COUNT 215 TH/MM3 (150-450); RED BLOOD COUNT 4.11 MIL/MM3 (4.00-5.30); WHITE BLOOD COUNT 5.3 TH/MM3 (4.0-11.0)
[2017-05-26 07:06] LABS: ALBUMIN 3.2 GM/DL (3.4-5.0); AST (GOT) 12 U/L (15-37); BICARBONATE 25.6 MEQ/L (21.0-32.0); BLOOD UREA NITROGEN 13 MG/DL (7-18); CALCIUM 8.5 MG/DL (8.5-10.1); CHLORIDE 107 MEQ/L (98-107); CREATININE 0.72 MG/DL (0.50-1.00); GLOMERULAR FILTRATION RATE 79 ML/MIN (>89); GLUCOSE,RANDOM 98 MG/DL (74-106); SODIUM (NA) 141 MEQ/L (136-145)
[2017-05-26 07:07] LABS: ALT (GPT) 20 U/L (10-53)
[2017-05-26 07:11] LABS: ALKALINE PHOSPHATASE 51 U/L (45-117); TOTAL BILIRUBIN ADULT 0.8 MG/DL (0.2-1.0); TROPONIN I LESS THAN 0.02 NG/ML (0.02-0.05)
[2017-05-26] MEDS: SODIUM CHLORIDE 0.9% FLUSH 10 ML FLUSH IV FLUSH SCH ×2 (09:03→20:47)
[2017-05-26] MEDS: LOSARTAN 50 MG TAB PO SCH (09:03)
[2017-05-26] MEDS: DOCUSATE SODIUM 50 MG/SENNA 8.6 MG TAB PO SCH ×2 (09:03→20:46)
[2017-05-26] MEDS: METOPROLOL TARTRATE 50 MG TAB PO SCH ×2 (09:04→20:46)
[2017-05-26] MEDS: ASPIRIN EC 81 MG TABEC PO SCH (09:05)
--- NOTE | 2017-05-26 10:16 | EKG ---
Date Performed: 05/25/2017 Time Performed: 21:45:26 PTAGE: 76 years EKG: Unfortunately baseline artifact obscures underlying rhythm. I do see P waves and the PVR i nterval appears to lengthen possibly suggesting a Wenckebach type phenomenon. This may have been pre sent previously. LEFT ANTERIOR FASCICULAR BLOCK NONSPECIFIC T-WAVE ABNORMALITY ABNORMAL ECG PREVIOUS TRACING : 05/25/2017 20.20 DOCTOR: Kael Chin Interpretating Date/Time 05/26/2017 10:15:17
--- NOTE | 2017-05-26 14:37 | HHI.PR ---
Subjective Remarks This is a 76-year-old female with a PMH of HTN and Skin CA who is brought in ER by EMS after syncopal event. Patient states she had upset stomach this morning with nausea, however was able to eat breakfast. States when she returned home she "didn't feel well" and had gotten up to go to the bathroom when she had sudden syncopal event. No reported seizure activity or incontinence. Similar episode 06/15/16 for which I admitted her, s/p negative cardiac work up at that time and Echo w/ EF 55-60%. On arrival, pt noted to be in A- fib w/ HR 102, no h/o of similar on last admission. Does not follow w/ Toe Closing Machine Tender. Denies chest pain or SOB. BP 135/90, HR 05, O2 sat 98% on RA Afebrile. CBC essentially unremarkable. Chemistry unremarkable. INR 1.0. UA small LE, minimal bacteria. CT Head w/ no acute findings. Seen in her bedroom, followed by Cardiology with diagnosis of New onset of atrial fibrillation, CHADS2-VASC score 3 recommended to continue anticoagulation with Eliquis, to rule out Souleymane arrhythmia syndrome, scheduled for Loop recorder in am tomorrow and discharge home. follow by Cardiology as outpatient no nausea, vomit or diarrhea. Objective Vital Signs Date Time Temp Pulse Resp B/P (MAP) Pulse Ox O2 Delivery O2 Flow Rate FiO2 05/26/17 12:30 05/26/17 07:34 95 20 113/70 (84) 100 05/26/17 03:00 90 14 122/80 (94) 98 Room Air 05/25/17 23:00 89 17 118/84 (95) 97 Room Air 05/25/17 20:47 16 99 Room Air 05/25/17 20:21 102 Room Air 05/25/17 20:21 102 18 126/83 (97) 99 Room Air 05/25/17 16:55 98.9 105 16 135/90 (105) 98 I/O 05/25/17 05/25/17 05/25/17 05/26/17 05/26/17 05/26/17 07:00 15:00 23:00 07:00 15:00 23:00 Intake Total 1000 ml Balance 1000 ml Intake IV Total 1000 ml # Voids 1 Result Diagram: 05/26/17 0450 05/26/17 0450 Imaging Last Impressions Chest X-Ray 05/26/17 0000 Signed Impressions: Service Date/Time: Friday, May 26, 2017 00:36 - CONCLUSION: Mild left base atelectasis. Steven Moran MD Head CT 05/25/17 2144 Signed Impressions: Service Date/Time: Thursday, May 25, 2017 22:43 - CONCLUSION: No acute intracranial abnormality. Steven Moran MD Procedures None Other Results Laboratory Tests Test 05/25/17 20:40 05/25/17 20:50 05/26/17 04:50 05/26/17 13:18 Prothrombin Time 10.2 SEC Prothromb Time International Ratio 1.0 RATIO Activated Partial Thromboplast Time 25.0 SEC Thyroid Stimulating Hormone 3rd Gen 2.000 uIU/ML Urine Color LIGHT-YELLOW Urine Turbidity CLEAR Urine pH 7.0 Urine Specific [place] 1.008 Urine Protein NEG mg/dL Urine Glucose (UA) NEG mg/dL Urine Ketones NEG mg/dL Urine Occult Blood NEG Urine Nitrite NEG Urine Bilirubin NEG Urine Urobilinogen LESS THAN 2.0 MG/DL Urine Leukocyte Esterase SMALL Urine RBC 1 /hpf Urine WBC 4 /hpf Microscopic Urinalysis Comment CULT NOT INDICATED White Blood Count 5.3 TH/MM3 Red Blood Count 4.11 MIL/MM3 Hemoglobin 12.7 GM/DL Hematocrit 35.8 % Mean Corpuscular Volume 87.2 FL Mean Corpuscular Hemoglobin 30.8 PG Mean Corpuscular Hemoglobin Concent 35.3 % Red Cell Distribution Width 13.0 % Platelet Count 215 TH/MM3 Mean Platelet Volume 7.5 FL Neutrophils (%) (Auto) 72.5 % Lymphocytes (%) (Auto) 19.4 % Monocytes (%) (Auto) 6.6 % Eosinophils (%) (Auto) 1.2 % Basophils (%) (Auto) 0.3 % Neutrophils # (Auto) 3.8 TH/MM3 Lymphocytes # (Auto) 1.0 TH/MM3 Monocytes # (Auto) 0.3 TH/MM3 Eosinophils # (Auto) 0.1 TH/MM3 Basophils # (Auto) 0.0 TH/MM3 CBC Comment DIFF FINAL Differential Comment Blood Urea Nitrogen 13 MG/DL Creatinine 0.72 MG/DL Random Glucose 98 MG/DL Total Protein 6.0 GM/DL Albumin 3.2 GM/DL Calcium Level 8.5 MG/DL Alkaline Phosphatase 51 U/L Aspartate Amino Transf (AST/SGOT) 12 U/L Alanine Aminotransferase (ALT/SGPT) 20 U/L Total Bilirubin 0.8 MG/DL Sodium Level 141 MEQ/L Potassium Level 3.4 MEQ/L Chloride Level 107 MEQ/L Carbon Dioxide Level 25.6 MEQ/L Anion Gap 8 MEQ/L Estimat Glomerular Filtration Rate 79 ML/MIN Troponin I LESS THAN 0.02 NG/ML Objective Remarks GENERAL: Well developed in no acute distress. HEENT: PERRLA, EOMI. No scleral icterus or conjunctival pallor. No lid lag or facial droop. CARDIOVASCULAR: Irregularly irregular, in A. fib. No obvious murmurs to auscultation. No chest tenderness to palpation. RESPIRATORY: No obvious rhonchi or wheezing. Clear to auscultation. Breath sounds equal bilaterally. GASTROINTESTINAL: Abdomen soft, non-tender, nondistended. BS normal. MUSCULOSKELETAL: Extremities without clubbing, cyanosis, or edema. No obvious deformities. NEUROLOGICAL: Awake, alert and oriented x4. No focal neurologic deficits. Moving both upper and lower extremities spontaneously. Medications and IVs Current Medications Medications (Trade) Dose Ordered Sig/Ofelia Route Start Time Stop Time Status Last Admin Sodium Chloride 1,000 ml @ 100 mls/hr Q10H IV 05/25/17 23:18 05/26/17 09:35 (NS Flush) 2 ml UNSCH PRN IV FLUSH 05/25/17 23:30 (NS Flush) 2 ml BID IV FLUSH 05/26/17 09:00 05/26/17 09:03 (Zofran Inj) 4 mg Q6H PRN IVP 05/25/17 23:30 (Tylenol) 650 mg Q6H PRN PO 05/25/17 23:30 ([place] 5-325 Mg) 1 tab Q4H PRN PO 05/25/17 23:30 (Morphine Inj) 2 mg Q3H PRN IV PUSH 05/25/17 23:30 (Cece-Colace) 1 tab BID PO 05/26/17 09:00 05/26/17 09:03 (Milk Of Magnesia Liq) 30 ml Q12H PRN PO 05/25/17 23:30 (Senokot) 17.2 mg Q12H PRN PO 05/25/17 23:30 (Dulcolax Supp) 10 mg DAILY PRN RECTAL 05/25/17 23:30 (Lactulose Liq) 30 ml DAILY PRN PO 05/25/17 23:30 (Cozaar) 100 mg DAILY PO 05/26/17 09:00 05/26/17 09:03 (Lopressor) 50 mg BID PO 05/26/17 09:00 05/26/17 09:04 (Ecotrin Ec) 81 mg DAILY PO 05/26/17 09:00 05/26/17 09:05 A/P Assessment and Plan 1. Syncope: c/o nausea w/ subsequent syncope, possibly triggered by dysrhythmia, similar episode 06/15/16 however no A-fib at that time. at this time continue Cardiac monitoring, Cardiac enzymes negative, Echo 06/16/16 w/ EF60-65%, will repeat Echo to eval for valvular abnormality. Aspirin, Metoprolol, followed by Cardiology with diagnosis of New onset of atrial fibrillation, CHADS2-VASC score 3 recommended to continue anticoagulation with Eliquis, to rule out Souleymane arrhythmia syndrome, scheduled for Loop recorder in am tomorrow and discharge home. follow by Cardiology as outpatient no nausea, vomit or diarrhea. 2. A-fib: New Onset. HR 105 on arrival, monitor on telemetry, resume home Metoprolol and ASA. Cardizem prn for HR >130. 3. hypertension controlled 4. Breast Cancer by history. DVT Prophylaxis: SCD/Teds. Eliquis to start by Cardiology Discharge Planning once cleared by tooling specialist. Jesús Hanson MD May 26, 2017 14:37
--- NOTE | 2017-05-26 16:29 | MB ---
cc: Yovanny Mata MD DATE OF CONSULT: 05/26/2017 REASON FOR CONSULTATION: Syncope and atrial fibrillation. HISTORY OF PRESENT ILLNESS: The patient is a pleasant 76-year-old woman who presented about a year ago for an episode of syncope and presents again almost exactly a year later with an episode of syncope. She was feeling nauseous this morning and had gotten up to use the bathroom when she passed out. When seen in the emergency department she was found to be in a very slightly rapid atrial fibrillation with a rate of about 100, which was a new diagnosis of the patient. Currently her symptoms have resolved. She has no chest pain, palpitations, shortness of breath, lightheadedness, dizziness. PAST MEDICAL HISTORY: 1. Syncope about one year ago of uncertain etiology. 2. Hypertension. CURRENT MEDICATIONS: 1. Cozaar 100 mg daily. 2. Lopressor 50 mg twice a day. ALLERGIES: NO KNOWN DRUG ALLERGIES PHYSICAL EXAMINATION: VITAL SIGNS: Afebrile. Pulse 95. Respiratory rate 20. Blood pressure 113/70. Sating 100% on room air. GENERAL: Pleasant woman, in no distress. NECK: No JVD. LUNGS: Clear to auscultation bilaterally. CARDIOVASCULAR: Irregularly irregular rhythm with a regular rate. No murmurs appreciated. ABDOMEN: Benign. EXTREMITIES: No edema. LABORATORY DATA: White count 5.3, hematocrit 35.8, platelets 215. Sodium 141, potassium 3.4, chloride 107, bicarb 25.6, BUN 13, creatinine 0.72, glucose 98. Cardiac enzymes are negative x 2. EKG shows atrial fibrillation with a rate of 100. Current telemetry shows atrial fibrillation in the 90s with no significant ST or T-wave changes. IMPRESSION: 1. New onset atrial fibrillation. The patient with new onset atrial fibrillation has a CHADS VASc score of 3-4 for age, gender and possible hypertension. I discussed the risks and benefits of her anticoagulation choices and she will opt for Eliquis which I will begin tomorrow after her loop recorder (see below). 2. Syncope. The patient has had a second syncopal episode and despite the new diagnosis of atrial fibrillation it is still unclear how and if this atrial fibrillation relates to her syncopal episode. She could easily have either a tachy or jeff arrhythmia and at this time it is unclear how best to treat her. Thus, I will plan for a loop recorder for continuous monitoring of her atrial fibrillation and management thereof. The patient was explained the risks and benefits and agreed to proceed with the procedure. I will see her for her loop recorder tomorrow and if her echocardiogram shows no significant new disease, she can likely be discharged home after. She plans on following up with me in the office and every winter thereafter, and she will be seen in [place] during the summer months as well by her home family physician. Thank you for the opportunity to participate in this patient's care. MD KAITLYNN Phan/ANTONIO/rr , 02:54 PM , 03:24 PM
--- NOTE | 2017-05-26 16:53 | ECHRPT ---
Indication: CARDIOMYOPATHY CONCLUSIONS Normal left ventricular size. Wall thickness is normal. The left ventricular systolic function is low normal with an estimated ejection fraction in the rang e of 50- 55%. Trace mitral valve regurgitation. Trace aortic valve regurgitation. The estimated pulmonary arterial pressure is 30 mmHg. Trivial pulmonary valve regurgitation. The left atrial size is mildly dilated. BP: 113 / 70 HR: 84 Rhythm: Atrial fibrillation MEASUREMENTS (Male / Female) Normal Values Technical Quality: 2D ECHO LV Diastolic Diameter PLAX 4.9 cm 4.2 - 5.9 / 3.9 - 5.3 cm LV Systolic Diameter PLAX 3.4 cm IVS Diastolic Thickness 1.2 cm 0.6 - 1.0 / 0.6 - 0.9 cm LVPW Diastolic Thickness 0.7 cm 0.6 - 1.0 / 0.6 - 0.9 cm LV Relative Wall Thickness 0.4 RV Internal Dim ED PLAX 2.6 cm LA Systolic Diameter LX 4.2 cm 3.0 - 4.0 / 2.7 - 3.8 cm M-MODE Aortic Root Diameter MM 3.4 cm AV Cusp Separation MM 2.3 cm DOPPLER Mitral E Point Velocity 110.0 cm/s TR Peak Velocity 246.0 cm/s TR Peak Gradient 24.2 mmHg FINDINGS LEFT VENTRICLE Normal left ventricular size. Wall thickness is normal. The left ventricular systolic function is low normal with an estimated ejection fraction in the rang e of 50- 55%. RIGHT VENTRICLE Normal right ventricular size and systolic function. LEFT ATRIUM The left atrial size is mildly dilated. RIGHT ATRIUM The right atrial size is normal. ATRIAL SEPTUM Normal atrial septal thickness without atrial level shunting by limited color doppler interrogation. AORTA The aortic root and proximal ascending aorta are normal in size on limited imaging. MITRAL VALVE Trace mitral valve regurgitation. AORTIC VALVE Trace aortic valve regurgitation. TRICUSPID VALVE The estimated pulmonary arterial pressure is 30 mmHg. PULMONARY VALVE Trivial pulmonary valve regurgitation. VESSELS The inferior vena cava is normal in size. PERICARDIUM No pericardial effusion. Yovanny Mata MD (Electronically Signed) Final Date:26 May 2017 16:51
[2017-05-26] MEDS ORDERED: POTASSIUM CHLORIDE 20 MEQ CONTROLLED RELEASE TAB PO ONE ×2 (18:45→21:00)
[2017-05-27] VITALS (13 sets, daily range): BP systolic 111–147; BP diastolic 64–92; PULSE 62–100; RESP 18; TEMP 98.2–98.4; O2SAT 95–98
[2017-05-27] MEDS: SODIUM CHLOR 0.9% 1000 ML INJ 1,000 ML IV SCH (05:18)
[2017-05-27 06:32] LABS: BICARBONATE 27.3 MEQ/L (21.0-32.0); CALCIUM 8.3 MG/DL (8.5-10.1); CREATININE 0.67 MG/DL (0.50-1.00)
[2017-05-27] MEDS: ASPIRIN EC 81 MG TABEC PO SCH (07:25)
[2017-05-27] MEDS: LOSARTAN 50 MG TAB PO SCH (07:25)
[2017-05-27] MEDS: METOPROLOL TARTRATE 50 MG TAB PO SCH (07:25)
[2017-05-27] MEDS: DOCUSATE SODIUM 50 MG/SENNA 8.6 MG TAB PO SCH (07:28)
[2017-05-27] MEDS: SODIUM CHLORIDE 0.9% FLUSH 10 ML FLUSH IV FLUSH SCH (07:28)
[2017-05-27] MEDS ORDERED: ceFAZolin 2 GM PREMIX 50 ML IV SCH (07:45)
--- NOTE | 2017-05-27 08:59 | PD.CARD.PN ---
Subjective Subjective Remarks No complaints; rate controlled afib/flutter on tele. Objective Medications Current Medications Medications (Trade) Dose Ordered Sig/Ofelia Route Start Time Stop Time Status Last Admin Sodium Chloride 1,000 ml @ 100 mls/hr Q10H IV 05/25/17 23:18 05/26/17 09:35 (NS Flush) 2 ml UNSCH PRN IV FLUSH 05/25/17 23:30 (NS Flush) 2 ml BID IV FLUSH 05/26/17 09:00 05/27/17 07:28 (Zofran Inj) 4 mg Q6H PRN IVP 05/25/17 23:30 (Tylenol) 650 mg Q6H PRN PO 05/25/17 23:30 ([place] 5-325 Mg) 1 tab Q4H PRN PO 05/25/17 23:30 (Morphine Inj) 2 mg Q3H PRN IV PUSH 05/25/17 23:30 (Cece-Colace) 1 tab BID PO 05/26/17 09:00 05/26/17 09:03 (Milk Of Magnesia Liq) 30 ml Q12H PRN PO 05/25/17 23:30 (Senokot) 17.2 mg Q12H PRN PO 05/25/17 23:30 (Dulcolax Supp) 10 mg DAILY PRN RECTAL 05/25/17 23:30 (Lactulose Liq) 30 ml DAILY PRN PO 05/25/17 23:30 (Cozaar) 100 mg DAILY PO 05/26/17 09:00 05/27/17 07:25 (Lopressor) 50 mg BID PO 05/26/17 09:00 05/27/17 07:25 (Ecotrin Ec) 81 mg DAILY PO 05/26/17 09:00 05/27/17 07:25 (KCl) 20 meq DAILY PO 05/27/17 09:00 05/27/17 07:25 Cefazolin Sodium/ Dextrose 50 ml @ 100 mls/hr ICT ANALYST IV 05/27/17 07:45 05/30/17 07:44 Vital Signs / I&O Vital Signs Date Time Temp Pulse Resp B/P (MAP) Pulse Ox O2 Delivery O2 Flow Rate FiO2 05/27/17 06:00 79 05/27/17 05:00 93 05/27/17 04:00 80 05/27/17 04:00 Room Air 05/27/17 04:00 98.4 80 18 131/70 (90) 97 05/27/17 03:00 86 05/27/17 02:00 88 05/27/17 01:00 93 05/27/17 00:00 Room Air 05/27/17 00:00 98.2 100 18 126/74 (91) 96 05/27/17 00:00 100 05/26/17 23:00 96 05/26/17 22:00 95 05/26/17 21:00 102 05/26/17 20:00 98.0 90 20 135/76 (95) 98 05/26/17 20:00 90 05/26/17 18:06 93 05/26/17 17:18 78 05/26/17 15:19 98.2 72 20 117/94 (102) 99 05/26/17 12:30 I/O 05/26/17 05/26/17 05/26/17 05/27/17 05/27/17 05/27/17 07:00 15:00 23:00 07:00 15:00 23:00 Intake Total 1000 ml 120 ml 1240 ml Output Total 3 ml Balance 1000 ml 120 ml 1237 ml Intake Oral 120 ml 240 ml IV Total 1000 ml 1000 ml Output Urine Total 3 ml # Voids 1 # Bowel Movements 0 0 Physical Exam GENERAL: This is a well-nourished, well-developed patient, in no apparent distress. CARDIOVASCULAR: Regular rate and rhythm without murmurs, gallops, or rubs. RESPIRATORY: Clear to auscultation. Breath sounds equal bilaterally. No wheezes , rales, or rhonchi. GASTROINTESTINAL: Abdomen soft, non-tender, nondistended. Normal active bowel sounds MUSCULOSKELETAL: Extremities without clubbing, cyanosis, or edema. NEURO: Alert & Oriented x4 to person, place, time, situation. Moves all ext x4 Laboratory Laboratory Tests Test 05/26/17 13:18 05/27/17 04:49 Troponin I LESS THAN 0.02 NG/ML Blood Urea Nitrogen 11 MG/DL Creatinine 0.67 MG/DL Random Glucose 95 MG/DL Calcium Level 8.3 MG/DL Magnesium Level 2.0 MG/DL Sodium Level 142 MEQ/L Potassium Level 4.1 MEQ/L Chloride Level 109 MEQ/L Carbon Dioxide Level 27.3 MEQ/L Anion Gap 6 MEQ/L Estimat Glomerular Filtration Rate 86 ML/MIN Imaging Last Impressions Chest X-Ray 05/26/17 0000 Signed Impressions: Service Date/Time: Friday, May 26, 2017 00:36 - CONCLUSION: Mild left base atelectasis. Steven Moran MD Head CT 05/25/17 2144 Signed Impressions: Service Date/Time: Thursday, May 25, 2017 22:43 - CONCLUSION: No acute intracranial abnormality. Steven Moran MD Assessment and Plan Problem List: (1) Atrial fibrillation ICD Codes: I48.91 - Unspecified atrial fibrillation Status: Acute Plan: Reasonable rate control; loop in place to assist mgt; will start eliquis tonight (loop just inserted this am) (2) Syncope ICD Codes: R55 - Syncope and collapse Status: Acute Plan: Unclear if rate related or orthostatic; loop in place now Assessment and Plan Will see in my office in 1-2 weeks. Problem Qualifiers (1) Atrial fibrillation: Qualified Codes: I48.0 - Paroxysmal atrial fibrillation (2) Syncope: Qualified Codes: R55 - Syncope and collapse Yovanny Mata MD May 27, 2017 08:59
[2017-05-27] MEDS ORDERED: POTASSIUM CHLORIDE 20 MEQ CONTROLLED RELEASE TAB PO SCH (09:00)
--- NOTE | 2017-05-27 09:16 | HHI.PR ---
Subjective Remarks This is a 76-year-old female with a PMH of HTN and Skin CA who is brought in ER by EMS after syncopal event. Patient states she had upset stomach this morning with nausea, however was able to eat breakfast. States when she returned home she "didn't feel well" and had gotten up to go to the bathroom when she had sudden syncopal event. No reported seizure activity or incontinence. Similar episode 06/15/16 for which I admitted her, s/p negative cardiac work up at that time and Echo w/ EF 55-60%. On arrival, pt noted to be in A- fib w/ HR 102, no h/o of similar on last admission. Does not follow w/ Accountant Certified Public. Denies chest pain or SOB. BP 135/90, HR 05, O2 sat 98% on RA Afebrile. CBC essentially unremarkable. Chemistry unremarkable. INR 1.0. UA small LE, minimal bacteria. CT Head w/ no acute findings. 05/27: Seen in her bedroom, followed by Cardiology with diagnosis of New onset of atrial fibrillation, CHADS2-VASC score 3 recommended to continue anticoagulation with Eliquis, to rule out Souleymane arrhythmia syndrome, status post loop recorder and she will go home and follow by Doctor Esperanza in one week, no nausea, vomit or diarrhea. Objective Vital Signs Date Time Temp Pulse Resp B/P (MAP) Pulse Ox O2 Delivery O2 Flow Rate FiO2 05/27/17 06:00 79 05/27/17 05:00 93 05/27/17 04:00 80 05/27/17 04:00 Room Air 05/27/17 04:00 98.4 80 18 131/70 (90) 97 05/27/17 03:00 86 05/27/17 02:00 88 05/27/17 01:00 93 05/27/17 00:00 Room Air 05/27/17 00:00 98.2 100 18 126/74 (91) 96 05/27/17 00:00 100 05/26/17 23:00 96 05/26/17 22:00 95 05/26/17 21:00 102 05/26/17 20:00 98.0 90 20 135/76 (95) 98 05/26/17 20:00 90 05/26/17 18:06 93 05/26/17 17:18 78 05/26/17 15:19 98.2 72 20 117/94 (102) 99 05/26/17 12:30 I/O 05/26/17 05/26/17 05/26/17 05/27/17 05/27/17 05/27/17 07:00 15:00 23:00 07:00 15:00 23:00 Intake Total 1000 ml 120 ml 1240 ml Output Total 3 ml Balance 1000 ml 120 ml 1237 ml Intake Oral 120 ml 240 ml IV Total 1000 ml 1000 ml Output Urine Total 3 ml # Voids 1 # Bowel Movements 0 0 Result Diagram: 05/26/17 0450 05/27/17 0449 Imaging Last Impressions Chest X-Ray 05/26/17 0000 Signed Impressions: Service Date/Time: Friday, May 26, 2017 00:36 - CONCLUSION: Mild left base atelectasis. Steven Moran MD Head CT 05/25/17 2144 Signed Impressions: Service Date/Time: Thursday, May 25, 2017 22:43 - CONCLUSION: No acute intracranial abnormality. Steven Moran MD Procedures Loop recorder placement. Other Results Laboratory Tests Test 05/25/17 20:40 05/25/17 20:50 05/26/17 04:50 05/26/17 13:18 Prothrombin Time 10.2 SEC Prothromb Time International Ratio 1.0 RATIO Activated Partial Thromboplast Time 25.0 SEC Thyroid Stimulating Hormone 3rd Gen 2.000 uIU/ML Urine Color LIGHT-YELLOW Urine Turbidity CLEAR Urine pH 7.0 Urine Specific [place] 1.008 Urine Protein NEG mg/dL Urine Glucose (UA) NEG mg/dL Urine Ketones NEG mg/dL Urine Occult Blood NEG Urine Nitrite NEG Urine Bilirubin NEG Urine Urobilinogen LESS THAN 2.0 MG/DL Urine Leukocyte Esterase SMALL Urine RBC 1 /hpf Urine WBC 4 /hpf Microscopic Urinalysis Comment CULT NOT INDICATED White Blood Count 5.3 TH/MM3 Red Blood Count 4.11 MIL/MM3 Hemoglobin 12.7 GM/DL Hematocrit 35.8 % Mean Corpuscular Volume 87.2 FL Mean Corpuscular Hemoglobin 30.8 PG Mean Corpuscular Hemoglobin Concent 35.3 % Red Cell Distribution Width 13.0 % Platelet Count 215 TH/MM3 Mean Platelet Volume 7.5 FL Neutrophils (%) (Auto) 72.5 % Lymphocytes (%) (Auto) 19.4 % Monocytes (%) (Auto) 6.6 % Eosinophils (%) (Auto) 1.2 % Basophils (%) (Auto) 0.3 % Neutrophils # (Auto) 3.8 TH/MM3 Lymphocytes # (Auto) 1.0 TH/MM3 Monocytes # (Auto) 0.3 TH/MM3 Eosinophils # (Auto) 0.1 TH/MM3 Basophils # (Auto) 0.0 TH/MM3 CBC Comment DIFF FINAL Differential Comment Blood Urea Nitrogen 13 MG/DL Creatinine 0.72 MG/DL Random Glucose 98 MG/DL Total Protein 6.0 GM/DL Albumin 3.2 GM/DL Calcium Level 8.5 MG/DL Alkaline Phosphatase 51 U/L Aspartate Amino Transf (AST/SGOT) 12 U/L Alanine Aminotransferase (ALT/SGPT) 20 U/L Total Bilirubin 0.8 MG/DL Sodium Level 141 MEQ/L Potassium Level 3.4 MEQ/L Chloride Level 107 MEQ/L Carbon Dioxide Level 25.6 MEQ/L Troponin I LESS THAN 0.02 NG/ML Test 05/27/17 04:49 Blood Urea Nitrogen 11 MG/DL Creatinine 0.67 MG/DL Random Glucose 95 MG/DL Calcium Level 8.3 MG/DL Magnesium Level 2.0 MG/DL Sodium Level 142 MEQ/L Potassium Level 4.1 MEQ/L Chloride Level 109 MEQ/L Carbon Dioxide Level 27.3 MEQ/L Anion Gap 6 MEQ/L Estimat Glomerular Filtration Rate 86 ML/MIN Objective Remarks GENERAL: Well developed in no acute distress. HEENT: PERRLA, EOMI. No scleral icterus or conjunctival pallor. No lid lag or facial droop. CARDIOVASCULAR: Irregularly irregular, in A. fib. No obvious murmurs to auscultation. No chest tenderness to palpation. RESPIRATORY: No obvious rhonchi or wheezing. Clear to auscultation. Breath sounds equal bilaterally. GASTROINTESTINAL: Abdomen soft, non-tender, nondistended. BS normal. MUSCULOSKELETAL: Extremities without clubbing, cyanosis, or edema. No obvious deformities. NEUROLOGICAL: Awake, alert and oriented x4. No focal neurologic deficits. Moving both upper and lower extremities spontaneously. Medications and IVs Current Medications Medications (Trade) Dose Ordered Sig/Ofelia Route Start Time Stop Time Status Last Admin Sodium Chloride 1,000 ml @ 100 mls/hr Q10H IV 05/25/17 23:18 05/26/17 09:35 (NS Flush) 2 ml UNSCH PRN IV FLUSH 05/25/17 23:30 (NS Flush) 2 ml BID IV FLUSH 05/26/17 09:00 05/27/17 07:28 (Zofran Inj) 4 mg Q6H PRN IVP 05/25/17 23:30 (Tylenol) 650 mg Q6H PRN PO 05/25/17 23:30 ([place] 5-325 Mg) 1 tab Q4H PRN PO 05/25/17 23:30 (Morphine Inj) 2 mg Q3H PRN IV PUSH 05/25/17 23:30 (Cece-Colace) 1 tab BID PO 05/26/17 09:00 05/26/17 09:03 (Milk Of Magnesia Liq) 30 ml Q12H PRN PO 05/25/17 23:30 (Senokot) 17.2 mg Q12H PRN PO 05/25/17 23:30 (Dulcolax Supp) 10 mg DAILY PRN RECTAL 05/25/17 23:30 (Lactulose Liq) 30 ml DAILY PRN PO 05/25/17 23:30 (Cozaar) 100 mg DAILY PO 05/26/17 09:00 05/27/17 07:25 (Lopressor) 50 mg BID PO 05/26/17 09:00 05/27/17 07:25 (Ecotrin Ec) 81 mg DAILY PO 05/26/17 09:00 05/27/17 07:25 (KCl) 20 meq DAILY PO 05/27/17 09:00 05/27/17 07:25 Cefazolin Sodium/ Dextrose 50 ml @ 100 mls/hr BACK GRAY CLOTH WASHER IV 05/27/17 07:45 05/30/17 07:44 (Eliquis) 5 mg BID PO 05/27/17 21:00 A/P Assessment and Plan 1. Syncope: c/o nausea w/ subsequent syncope, possibly triggered by dysrhythmia, similar episode 06/15/16 however no A-fib at that time. at this time continue Cardiac monitoring, Cardiac enzymes negative, Echo 06/16/16 w/ EF60-65%, will repeat Echo to eval for valvular abnormality. Aspirin, Metoprolol, followed by Cardiology with diagnosis of New onset of atrial fibrillation, CHADS2-VASC score 3 recommended to continue anticoagulation with Eliquis, to rule out Souleymane- arrhythmia syndrome, scheduled for Loop recorder in am tomorrow and discharge home. follow by Cardiology as outpatient in one week. 2. A-fib: New Onset. HR 105 on arrival, monitor on telemetry, resume home Metoprolol and ASA. Cardizem prn for HR >130. Eliquis 3. Hypertension controlled. 4. Breast Cancer by history. DVT Prophylaxis: SCD/Teds. Eliquis Discharge Planning Discharge Home and follow with Cardiology in one week. Jesús Hanson MD May 27, 2017 09:16
--- NOTE | 2017-05-27 10:49 | MR ---
cc: Yovanny Mata MD 05/27/2017 PERFORMING PHYSICIAN: Dr. Yovanny Mata. INDICATION: Syncope. DESCRIPTION OF PROCEDURE: The patient was brought to the doc unit in the postabsorptive state. After informed consent was obtained, a [employer] LINQ loop recorder was inserted subcutaneously to the left chest. The patient tolerated the procedure without any apparent complications. Initial R-wave was between 0.17 and 0.2 mV. Tachybrady pause in atrial fibrillation detection was enabled. The serial number was [id number]. Yovanny Mata MD KAITLYNN/TL/ , 09:02 AM , 09:15 AM
[2017-05-27] MEDS ORDERED: APIX5TAB PO (11:19)
[2017-05-27] MEDS ORDERED: ECASA81 PO (11:19)
--- NOTE | 2017-05-27 11:31 | HHI.DS ---
Discharge Summary Admission Date May 25, 2017 at 23:17 Discharge Date: May 27, 2017 Admitting Diagnosis Syncope. New onset atrial fibrillation. (1) Syncope ICD Code: R55 - Syncope and collapse Diagnosis: Principal Status: Acute (2) A-fib ICD Code: I48.91 - Unspecified atrial fibrillation Diagnosis: Principal Procedures Loop recorder implantation Brief History - From Admission This is a 76-year-old female with a PMH of HTN and Skin CA who is brought in ER by EMS after syncopal event. Patient states she had upset stomach this morning with nausea, however was able to eat breakfast. States when she returned home she "didn't feel well" and had gotten up to go to the bathroom when she had sudden syncopal event. No reported seizure activity or incontinence. Similar episode 06/15/16 for which I admitted her, s/p negative cardiac work up at that time and Echo w/ EF 55-60%. On arrival, pt noted to be in A-fib w/ HR 102, no h /o of similar on last admission. Does not follow w/ Rehab Liaison. Denies chest pain or SOB. BP 135/90, HR 05, O2 sat 98% on RA Afebrile. CBC essentially unremarkable. Chemistry unremarkable. INR 1.0. UA small LE, minimal bacteria. CT Head w/ no acute findings. CBC/BMP: 05/26/17 0450 05/27/17 0449 Significant Findings Laboratory Tests Test 05/25/17 20:40 05/25/17 20:50 05/26/17 04:50 05/26/17 13:18 Neutrophils (%) (Auto) 86.6 % (16.0-70.0) 72.5 % (16.0-70.0) Lymphocytes (%) (Auto) 8.9 % (9.0-44.0) Lymphocytes # (Auto) 0.6 TH/MM3 (1.0-4.8) Urine Leukocyte Esterase SMALL (NEG) Total Protein 6.0 GM/DL (6.4-8.2) Albumin 3.2 GM/DL (3.4-5.0) Aspartate Amino Transf (AST/SGOT) 12 U/L (15-37) Potassium Level 3.4 MEQ/L (3.5-5.1) Estimat Glomerular Filtration Rate 79 ML/MIN (>89) Troponin I LESS THAN 0.02 NG/ML LESS THAN 0.02 NG/ML Test 05/27/17 04:49 Calcium Level 8.3 MG/DL (8.5-10.1) Chloride Level 109 MEQ/L (98-107) Estimat Glomerular Filtration Rate 86 ML/MIN (>89) Imaging Last Impressions Chest X-Ray 05/26/17 0000 Signed Impressions: Service Date/Time: Friday, May 26, 2017 00:36 - CONCLUSION: Mild left base atelectasis. Steven Moran MD Head CT 05/25/174 Signed Impressions: Service Date/Time: Thursday, May 25, 2017 22:43 - CONCLUSION: No acute intracranial abnormality. Steven Moran MD PE at Discharge GENERAL: Well developed in no acute distress. HEENT: PERRLA, EOMI. No scleral icterus or conjunctival pallor. No lid lag or facial droop. CARDIOVASCULAR: Irregularly irregular, in A. fib. No obvious murmurs to auscultation. No chest tenderness to palpation. RESPIRATORY: No obvious rhonchi or wheezing. Clear to auscultation. Breath sounds equal bilaterally. GASTROINTESTINAL: Abdomen soft, non-tender, nondistended. BS normal. MUSCULOSKELETAL: Extremities without clubbing, cyanosis, or edema. No obvious deformities. NEUROLOGICAL: Awake, alert and oriented x4. No focal neurologic deficits. Moving both upper and lower extremities spontaneously. Hospital Course This is a 76-year-old female with a PMH of HTN and Skin CA who is brought in ER by EMS after syncopal event. Patient states she had upset stomach this morning with nausea, however was able to eat breakfast. States when she returned home she "didn't feel well" and had gotten up to go to the bathroom when she had sudden syncopal event. No reported seizure activity or incontinence. Similar episode 06/15/16 for which I admitted her, s/p negative cardiac work up at that time and Echo w/ EF 55-60%. On arrival, pt noted to be in A- fib w/ HR 102, no h/o of similar on last admission. Does not follow w/ Rehab Liaison. Denies chest pain or SOB. BP 135/90, HR 05, O2 sat 98% on RA Afebrile. CBC essentially unremarkable. Chemistry unremarkable. INR 1.0. UA small LE, minimal bacteria. CT Head w/ no acute findings. 05/27: Seen in her bedroom, followed by Cardiology with diagnosis of New onset of atrial fibrillation, CHADS2-VASC score 3 recommended to continue anticoagulation with Eliquis, to rule out Souleymane arrhythmia syndrome, status post loop recorder and she will go home and follow by Doctor Mata in one week, no nausea, vomit or diarrhea. Assessment and Plan 1. Syncope: c/o nausea w/ subsequent syncope, possibly triggered by dysrhythmia, similar episode 06/15/16 however no A-fib at that time. at this time continue Cardiac monitoring, Cardiac enzymes negative, Echo 06/16/16 w/ EF60-65%, will repeat Echo to eval for valvular abnormality. Aspirin, Metoprolol, followed by Cardiology with diagnosis of New onset of atrial fibrillation, CHADS2-VASC score 3 recommended to continue anticoagulation with Eliquis, to rule out Souleymane- arrhythmia syndrome, scheduled for Loop recorder in am tomorrow and discharge home. follow by Cardiology as outpatient in one week. 2. A-fib: New Onset. HR 105 on arrival, monitor on telemetry, resume home Metoprolol and ASA. Cardizem prn for HR >130. Eliquis 3. Hypertension controlled. 4. Breast Cancer by history. DVT Prophylaxis: SCD/Teds. Eliquis Discharge Planning Discharge Home and follow with Cardiology in one week. Pt Condition on Discharge: Good Discharge Disposition: Discharge Home Discharge Time: <= 30 minutes Discharge Instructions DIET: Follow Instructions for: Heart Healthy Diet Activities you can perform: Regular-No Restrictions Jesús Hanson MD May 27, 2017 11:31
[2017-05-27] MEDS ORDERED: APIXABAN 5 MG TABLET PO SCH (21:00)
== END 2017-05-27 11:52 | disposition home or self-care (01) ==
LOC: NEDAMB 16:44 → NEDA 23:17 → NEDH 05-26 05:25 → HCIS 05-26 16:33
PROVIDERS: ADMIT Internal Medicine; ATTEND Internal Medicine
DX: R55 Syncope and collapse (principal); I48.0 Paroxysmal atrial fibrillation; I44.4 Left anterior fascicular block; R94.31 Abnormal electrocardiogram [ECG] [EKG]; R11.0 Nausea; R07.9 Chest pain, unspecified; I10 Essential (primary) hypertension; H91.90 Unspecified hearing loss, unspecified ear; Z79.899 Other long term (current) drug therapy; Z85.828 Personal history of other malignant neoplasm of skin; Z85.3 Personal history of malignant neoplasm of breast
CPT/HCPCS: 33282; 70450; 71045; 80048; 80053; 81001; 83735; 84443; 84484; 85025; 85610; 85730; 93005; 93306; 96361; 96374; 99285; C1764; G0378; J0690; J2405; J7030